=== PATIENT | female | born 1940 | race Caucasian/White ===

== ENCOUNTER → 2016-07-31 | Outpatient (REF) | payer MEDICARE, MEDICAID ==
[~2016-07-31] MED LIST: /MOXI40TA PO; AUGM875T27 PO; CRESTOR PO; LASI40TA PO; LISINOPRIL/HCTZ PO; METO50TA2 PO; Prednisone PO; TESS100C PO; ZOLO50TA PO
== END ==
LOC: M LAB REF 12:51
PROVIDERS: ATTEND Physician Assistant Medical
DX: N39.0 Urinary tract infection, site not specified (principal)

== ENCOUNTER → 2016-08-25 | Outpatient (CLI) | payer MEDICARE, MEDICAID ==
[2016-08-25 10:26] LABS: BASO % 0.4 % (0.0-1.0); EOS # 0.2 K/mm3 (0.0-0.50); EOS % 2.8 % (0.0-3.0); LYMPH # 1.5 K/mm3 (1.5-4.5); MEAN CORPUSCULAR HEMOGLOBIN 30.2 pg (27.0-33.0); MEAN CORPUSCULAR HGB CONC 33.2 g/dl (32.0-36.5); MONO # 0.5 K/mm3 (0.0-0.8); MONO % 7.7 % (0.0-5.0); NEUTROPHILS # 3.6 K/mm3 (1.8-7.7); NEUTROPHILS % 62.9 % (36.0-66.0); RED CELL DISTRIBUTION WIDTH 13.3 % (11.5-14.5); WHITE BLOOD COUNT 5.8 K/mm3 (4.0-10.0)
[2016-08-25 10:44] LABS: ALBUMIN/GLOBULIN RATIO 1.29 (1.00-1.93); ALKALINE PHOSPHATASE 70 U/L (45-117); ALT/SGPT 34 U/L (12-78); ANION GAP 8 MEQ/L (8-16); AST/SGOT 20 U/L (15-37); BILIRUBIN,TOTAL 0.5 MG/DL (0.2-1.0); BLOOD UREA NITROGEN 13 MG/DL (7-18); CARBON DIOXIDE LEVEL 29 MEQ/L (21-32); CHLORIDE LEVEL 108 MEQ/L (98-107); CHOLESTEROL LEVEL 157 MG/DL (<200); CREATININE FOR GFR 0.68 MG/DL (0.55-1.02); GLOMERULAR FILTRATION RATE > 60.0 (>39); GLUCOSE, FASTING 108 MG/DL (83-110); GLUCOSE,RANDOM 108 MG/DL (LESS THAN 200); POTASSIUM SERUM 4.3 MEQ/L (3.5-5.1); SODIUM LEVEL 145 MEQ/L (136-145); TOTAL PROTEIN 7.1 GM/DL (6.4-8.2); TRIGLYCERIDES LEVEL 91 MG/DL (<150)
== END ==
LOC: M LAB 09:47
PROVIDERS: ATTEND Physician Assistant Medical
DX: E11.9 Type 2 diabetes mellitus without complications (principal)

== ENCOUNTER → 2016-11-25 | Outpatient (CLI) | payer MEDICARE, MEDICAID ==
[2016-11-25 08:43] LABS: BASO % 0.5 % (0.0-1.0); EOS # 0.1 K/mm3 (0.0-0.50); EOS % 2.2 % (0.0-3.0); LYMPH # 1.7 K/mm3 (1.5-4.5); LYMPH % 28.3 % (24.0-44.0); MEAN CORPUSCULAR HEMOGLOBIN 30.5 pg (27.0-33.0); MEAN CORPUSCULAR VOLUME 92.3 fl (80.0-96.0); MONO # 0.4 K/mm3 (0.0-0.8); MONO % 6.9 % (0.0-5.0); NEUTROPHILS # 3.5 K/mm3 (1.8-7.7); NEUTROPHILS % 60.5 % (36.0-66.0); RED CELL DISTRIBUTION WIDTH 13.7 % (11.5-14.5); WHITE BLOOD COUNT 5.8 K/mm3 (4.0-10.0)
[2016-11-25 09:15] LABS: ALBUMIN 3.9 GM/DL (3.2-5.2); ALBUMIN/GLOBULIN RATIO 1.26 (1.00-1.93); ALKALINE PHOSPHATASE 68 U/L (45-117); ALT/SGPT 44 U/L (12-78); ANION GAP 6 MEQ/L (8-16); AST/SGOT 23 U/L (15-37); BILIRUBIN,TOTAL 0.4 MG/DL (0.2-1.0); BLOOD UREA NITROGEN 12 MG/DL (7-18); CALCIUM LEVEL 8.8 MG/DL (8.8-10.2); CARBON DIOXIDE LEVEL 30 MEQ/L (21-32); CHLORIDE LEVEL 107 MEQ/L (98-107); CHOLESTEROL LEVEL 204 MG/DL (<200); CREATININE FOR GFR 0.72 MG/DL (0.55-1.02); GLOMERULAR FILTRATION RATE > 60.0 (>39); GLUCOSE, FASTING 117 MG/DL (83-110); POTASSIUM SERUM 4.4 MEQ/L (3.5-5.1); SODIUM LEVEL 143 MEQ/L (136-145); TRIGLYCERIDES LEVEL 127 MG/DL (<150)
== END ==
LOC: M LAB 07:55
PROVIDERS: ATTEND Physician Assistant Medical
DX: E11.9 Type 2 diabetes mellitus without complications (principal)

== ENCOUNTER 2017-03-20 12:39 | Emergency (ER) | payer MEDICARE, MEDICAID ==
[~2017-03-20] VITALS: Ht 157.5 cm; Wt 84.1 kg
[2017-03-20] MEDS ORDERED: MECLIZINE 25 MG TABLET PO ONE (13:45)
[2017-03-20] MEDS ORDERED: FUROSEMIDE 40 MG TAB PO ONE (13:45)
[2017-03-20] MEDS ORDERED: METOPROLOL TART 50 MG TAB PO ONE (13:45)
[2017-03-20 14:25] VITALS: BP 171/71
[2017-03-20 14:32] LABS: BASO % 0.3 % (0.0-1.0); EOS # 0.1 K/mm3 (0.0-0.50); EOS % 1.8 % (0.0-3.0); LARGE UNSTAINED CELL # 0.1 K/mm3 (0.0-0.4); LARGE UNSTAINED CELL % 1.7 % (0.0-4.0); LYMPH # 1.6 K/mm3 (1.5-4.5); LYMPH % 23.4 % (24.0-44.0); MEAN CORPUSCULAR HEMOGLOBIN 30.6 pg (27.0-33.0); MEAN CORPUSCULAR HGB CONC 33.1 g/dl (32.0-36.5); MEAN CORPUSCULAR VOLUME 92.2 fl (80.0-96.0); MONO # 0.5 K/mm3 (0.0-0.8); MONO % 7.1 % (0.0-5.0); NEUTROPHILS # 4.3 K/mm3 (1.8-7.7); NEUTROPHILS % 65.6 % (36.0-66.0); PLATELET COUNT, AUTOMATED 195 k/mm3 (150-450); RED CELL DISTRIBUTION WIDTH 13.7 % (11.5-14.5); WHITE BLOOD COUNT 6.5 K/mm3 (4.0-10.0)
[2017-03-20 14:35] LABS: INR 0.94
[2017-03-20 14:38] LABS: ANION GAP 6 MEQ/L (8-16); BLOOD UREA NITROGEN 14 MG/DL (7-18); CALCIUM LEVEL 9.2 MG/DL (8.8-10.2); CARBON DIOXIDE LEVEL 31 MEQ/L (21-32); CHLORIDE LEVEL 106 MEQ/L (98-107); CREATININE FOR GFR 0.67 MG/DL (0.55-1.02); GLOMERULAR FILTRATION RATE > 60.0 (>39); GLUCOSE, FASTING 115 MG/DL (83-110); POTASSIUM SERUM 3.9 MEQ/L (3.5-5.1); SODIUM LEVEL 143 MEQ/L (136-145)
--- NOTE | 2017-03-20 14:43 | REP ---
CHEST X-RAY: Two views. HISTORY: Near-syncope. Comparison chest x-ray October 19, 2012. FINDINGS: EKG monitoring electrodes overlie the chest. Heart size is borderline unchanged. The aorta is calcific and mildly tortuous as before. Pulmonary vasculature is not increased. Pleural angles are sharp. IMPRESSION: Mildly prominent heart. Otherwise no acute disease. No change from comparison study 2012. Signed by Arnaldo Reyes MD 03/20/2017 03:05 P
--- NOTE | 2017-03-20 14:52 | REP ---
Clinical: Trauma . Findings: Age-related atrophy and microvascular ischemic changes are appreciated. The ventricles and sulci are symmetric. Parsons-white differentiation is maintained. There is no evidence for acute intracranial hemorrhage, mass/mass effect, pathology or infarction. No extra-axial fluid collection. Calvarium is intact. Paranasal sinuses and mastoid air cells are clear. Impression: Age related atrophy and microvascular ischemic changes. No acute intracranial hemorrhage, infarction, or mass/mass effect. Signed by José Luis oJshua MD 03/20/2017 02:42 P
--- NOTE | 2017-03-20 14:53 | REP ---
CT study of the cervical spine without contrast: History: Trauma. Technique: Helical scanning is acquired and overlapping 2 mm high resolution axial images were generated and reviewed at bone and soft tissue window settings. Coronal and sagittal multiplanar re-formations images are generated. CT findings: There is no evidence of cervical spine element fracture. No skull base fracture is seen. Cervical vertebral body heights are preserved. Alignment is normal. Facet joints are normally aligned bilaterally at each cervical level on multiplanar re-formations images. There is no evidence of intraspinal or paraspinal hematoma. No extra vertebral abnormality is seen. There are degenerative spondylosis changes in the cervical spine most pronounced at the C 04/05 and C5-6. 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 Impression: Degenerative spondylosis changes, otherwise negative CT study of the cervical spine without contrast. No fracture seen. Signed by Arnaldo Reyes MD 03/20/2017 02:44 P
[2017-03-20 20:28] VITALS: BP 114/69
[2017-03-20] MEDS ORDERED: MECL-68 PO (20:41)
--- NOTE | 2017-03-21 11:08 | REP ---
Clinical: Trauma. Headache. Altered mental status. Technique: Standard noncontrast MRI brain sequencing. Findings: Mild age-related atrophy with periventricular leukomalacia and chronic microvascular ischemic changes appreciated. Parsons-white differentiation is maintained. DWI is without evidence for acute infarction. No acute intracranial hemorrhage or mass/mass effect appreciated. The brain and midline structures appear intact and symmetric. No extra-axial collection. Orbits are symmetric and normal. Sinuses and paranasal sinuses are within normal limits. Impression: Age-related atrophy and microvascular ischemic changes. No evidence for acute intracranial process. Signed by José Luis Joshua MD 03/21/2017 10:59 A
--- NOTE | 2017-03-21 11:13 | REP ---
Clinical: Recent trauma with altered mental status and dizziness. Technique: Noncontrast 3-D [id number] source images with multiplanar multi rotational MIP sequencing. Findings: Mild atherosclerotic changes to the internal carotid arteries suggested. Vascularity to the bilateral hemispheres appears symmetric. The bilateral posterior communicating arteries are not identifiable. No obvious arteriovenous malformation or aneurysm is appreciated. No obvious abnormality. Impression: Vascularity the bilateral hemispheres appears symmetric and normal. No evidence for aneurysm or arteriovenous malformation. Signed by José Luis Joshua MD 03/21/2017 11:03 A
--- NOTE | 2017-03-21 17:16 | ECGEPIP ---
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
== END 2017-03-20 20:42 | disposition home or self-care (01) ==
LOC: M ED 12:39
DX: H81.49 Vertigo of central origin, unspecified ear (principal); I10 Essential (primary) hypertension; E11.9 Type 2 diabetes mellitus without complications; J45.909 Unspecified asthma, uncomplicated; D64.9 Anemia, unspecified; E78.5 Hyperlipidemia, unspecified; F41.9 Anxiety disorder, unspecified; K21.9 Gastro-esophageal reflux disease without esophagitis; Z79.899 Other long term (current) drug therapy

== ENCOUNTER → 2017-03-30 | Outpatient (CLI) | payer MEDICARE, MEDICAID ==
[~2017-03-30] MED LIST changes: +MECL-68 PO
[2017-03-30 08:46] LABS: BASO % 0.3 % (0.0-1.0); EOS # 0.2 K/mm3 (0.0-0.50); EOS % 1.9 % (0.0-3.0); LYMPH % 26.2 % (24.0-44.0); MEAN CORPUSCULAR HEMOGLOBIN 30.1 pg (27.0-33.0); MEAN CORPUSCULAR HGB CONC 33.3 g/dl (32.0-36.5); MEAN CORPUSCULAR VOLUME 90.6 fl (80.0-96.0); MONO # 0.4 K/mm3 (0.0-0.8); MONO % 5.6 % (0.0-5.0); NEUTROPHILS % 64.3 % (36.0-66.0); RED CELL DISTRIBUTION WIDTH 13.2 % (11.5-14.5); WHITE BLOOD COUNT 7.7 K/mm3 (4.0-10.0)
[2017-03-30 08:57] LABS: ALBUMIN 3.8 GM/DL (3.2-5.2); ALBUMIN/GLOBULIN RATIO 1.15 (1.00-1.93); BILIRUBIN,TOTAL 0.4 MG/DL (0.2-1.0); CALCIUM LEVEL 8.3 MG/DL (8.8-10.2); CREATININE FOR GFR 1.09 MG/DL (0.55-1.02); GLOMERULAR FILTRATION RATE 52.1 (>39); POTASSIUM SERUM 4.6 MEQ/L (3.5-5.1); TOTAL PROTEIN 7.1 GM/DL (6.4-8.2)
== END ==
LOC: M LAB 07:57
PROVIDERS: ATTEND Physician Assistant Medical
DX: E11.9 Type 2 diabetes mellitus without complications (principal)

== ENCOUNTER → 2017-08-17 | Outpatient (REF) | payer MEDICARE, MEDICAID ==
[2017-08-17 14:42] LABS: MALB URINE SIEMENS 28.4 MG/L
[2017-08-17 15:06] LABS: ESTIMATED AVERAGE GLUCOSE 148 MG/DL (60-110); HEMOGLOBIN A1c 6.8 %
[2017-08-17 15:10] LABS: TOTAL 25(OH) VITAMIN D 37.5 NG/ML (30.0-100.0)
[2017-08-17 15:25] LABS: ALBUMIN/GLOBULIN RATIO 1.21 (1.00-1.93); ALKALINE PHOSPHATASE 67 U/L (45-117); ALT/SGPT 21 U/L (12-78); ANION GAP 10 MEQ/L (8-16); AST/SGOT 19 U/L (7-37); BILIRUBIN,TOTAL 0.5 MG/DL (0.2-1.0); BLOOD UREA NITROGEN 21 MG/DL (7-18); CALCIUM LEVEL 9.3 MG/DL (8.8-10.2); CARBON DIOXIDE LEVEL 24 MEQ/L (21-32); CHLORIDE LEVEL 111 MEQ/L (98-107); CREATININE FOR GFR 0.72 MG/DL (0.55-1.30); GLOMERULAR FILTRATION RATE > 60.0 (>39); GLUCOSE, FASTING 121 MG/DL (70-100); POTASSIUM SERUM 4.5 MEQ/L (3.5-5.1); SODIUM LEVEL 145 MEQ/L (136-145); TOTAL PROTEIN 7.3 GM/DL (6.4-8.2)
== END ==
LOC: M LAB REF 12:49
DX: E11.9 Type 2 diabetes mellitus without complications (principal)
CPT/HCPCS: 80053

== ENCOUNTER 2017-09-05 07:27 | Emergency (ER) | payer MEDICARE, MEDICAID ==
[2017-09-05] MEDS: MECLIZINE 25 MG TABLET PO (08:00)
[2017-09-05] MEDS: ONDANSETRON 4 MG ORAL DISINTEGRATING TAB (S0181) PO (08:00)
[2017-09-05 08:35] LABS: BASO % 0.3 % (0.0-1.0); EOS # 0.1 10^3/uL (0.0-0.50); EOS % 1.5 % (0.0-3.0); HEMATOCRIT 39.8 % (36.0-47.0); HEMOGLOBIN 13.1 g/dl (12.0-16.0); IMMATURE GRANULOCYTE % 0.4 % (0-3.0); LYMPH # 1.4 10^3/uL (1.5-4.5); LYMPH % 21.5 % (24.0-44.0); MEAN CORPUSCULAR HGB CONC 32.9 g/dl (32.0-36.5); MEAN CORPUSCULAR VOLUME 91.3 fl (80.0-96.0); MONO # 0.5 10^3/uL (0.0-0.8); MONO % 7.9 % (0.0-5.0); NEUTROPHILS # 4.6 10^3/uL (1.8-7.7); NEUTROPHILS % 68.4 % (36.0-66.0); PLATELET COUNT, AUTOMATED 220 10^3/uL (150-450); RED BLOOD COUNT 4.36 10^6/uL (4.00-5.40); RED CELL DISTRIBUTION WIDTH 13.7 % (11.5-14.5); WHITE BLOOD COUNT 6.7 10^3/uL (4.0-10.0)
[2017-09-05 08:47] LABS: ANION GAP 6 MEQ/L (8-16); BLOOD UREA NITROGEN 14 MG/DL (7-18); CALCIUM LEVEL 8.2 MG/DL (8.8-10.2); CARBON DIOXIDE LEVEL 28 MEQ/L (21-32); CHLORIDE LEVEL 110 MEQ/L (98-107); GLOMERULAR FILTRATION RATE > 60.0 (>39); GLUCOSE, FASTING 135 MG/DL (70-100); MAGNESIUM LEVEL 2.2 MG/DL (1.8-2.4); POTASSIUM SERUM 3.6 MEQ/L (3.5-5.1); SODIUM LEVEL 144 MEQ/L (136-145)
== END 2017-09-05 13:45 | disposition home or self-care (01) ==
LOC: M ED 07:27
DX: H81.399 Other peripheral vertigo, unspecified ear (principal); J44.9 Chronic obstructive pulmonary disease, unspecified; I10 Essential (primary) hypertension; F33.9 Major depressive disorder, recurrent, unspecified; Z79.84 Long term (current) use of oral hypoglycemic drugs; Z79.899 Other long term (current) drug therapy
CPT/HCPCS: 70551

== ENCOUNTER → 2017-10-21 | Outpatient (REF) | payer MEDICARE, MEDICAID ==
[2017-10-21 13:39] LABS: APPEARANCE, URINE HAZY (CLEAR); BACTERIA, URINE AUTO NEGATIVE (NEGATIVE); BILIRUBIN, URINE AUTO NEGATIVE (NEGATIVE); BLOOD, URINE BLOOD NEGATIVE (NEGATIVE); COLOR, URINE YELLOW (YELLOW); GLUCOSE, URINE (UA) AUTO NEGATIVE (NEGATIVE); KETONE, URINE AUTO TRACE mg/dL (NEGATIVE); LEUKOCYTE ESTERASE, URINE AUTO 3+ (NEGATIVE); MUCUS, URINE SMALL (NEGATIVE); NITRITE, URINE AUTO NEGATIVE (NEGATIVE); PROTEIN, URINE AUTO NEGATIVE (NEGATIVE); RBC, URINE AUTO 18 /HPF (0-3); SPECIFIC GRAVITY URINE AUTO 1.027 (1.002-1.035); SQUAMOUS EPITHELIAL CELL UR AU 1 /HPF (0-6); UROBILINOGEN, URINE AUTO 0.2 mg/dL (0.0-2.0); WBC, URINE AUTO 27 /HPF (0-3)
== END ==
LOC: M LAB REF 13:08
DX: N39.0 Urinary tract infection, site not specified (principal)
CPT/HCPCS: 81001

== ENCOUNTER 2017-12-31 06:06 | Emergency (ER) | payer MEDICARE, MEDICAID ==
[2017-12-31] MEDS: ACETAMINOPHEN 325 MG TAB PO (06:41)
[2017-12-31] MEDS: PHENAZOPYRIDINE 100 MG TAB PO (06:41)
[2017-12-31 06:45] LABS: KETONE, URINE AUTO RFX TRACE mg/dL (NEGATIVE); MUCUS, URINE RFX SMALL (NEGATIVE); NITRITE, URINE AUTO RFX NEGATIVE (NEGATIVE); RBC, URINE AUTO RFX TNTC /HPF (0-3); SPECIFIC GRAVITY UR AUTO RFX 1.028 (1.002-1.035); SQUAM EPITHELIAL CELL UR AURFX 2 /HPF (0-6)
[2017-12-31 06:46] LABS: LEUKOCYTE ESTERASE UR AUTO RFX 2+ (NEGATIVE); WBC, URINE AUTO RFX 15 /HPF (0-3)
[2017-12-31] MEDS: CIPROFLOXACIN 500 MG TAB PO (07:00)
== END 2017-12-31 07:02 | disposition home or self-care (01) ==
LOC: M ED 06:06
DX: N30.01 Acute cystitis with hematuria (principal); E11.9 Type 2 diabetes mellitus without complications; I10 Essential (primary) hypertension; J44.9 Chronic obstructive pulmonary disease, unspecified; K21.9 Gastro-esophageal reflux disease without esophagitis; F32.9 Major depressive disorder, single episode, unspecified; Z79.84 Long term (current) use of oral hypoglycemic drugs; Z79.899 Other long term (current) drug therapy
CPT/HCPCS: 81001

== ENCOUNTER 2018-01-13 05:36 | Emergency (ER) | payer MEDICARE, MEDICAID ==
[2018-01-13 06:37] LABS: KETONE, URINE AUTO RFX NEGATIVE (NEGATIVE); MUCUS, URINE RFX SMALL (NEGATIVE); NITRITE, URINE AUTO RFX NEGATIVE (NEGATIVE); RBC, URINE AUTO RFX TNTC /HPF (0-3); SPECIFIC GRAVITY UR AUTO RFX 1.018 (1.002-1.035); SQUAM EPITHELIAL CELL UR AURFX 1 /HPF (0-6)
[2018-01-13 06:38] LABS: LEUKOCYTE ESTERASE UR AUTO RFX 2+ (NEGATIVE); WBC, URINE AUTO RFX 14 /HPF (0-3)
[2018-01-13 06:41] LABS: BASO % 0.4 % (0.0-1.0); EOS # 0.1 10^3/uL (0.0-0.50); EOS % 2.4 % (0.0-3.0); HEMOGLOBIN 13.1 g/dl (12.0-15.5); IMMATURE GRANULOCYTE % 0.2 % (0-3.0); LYMPH # 1.6 10^3/uL (1.5-4.5); LYMPH % 29.9 % (24.0-44.0); MEAN CORPUSCULAR HGB CONC 32.8 g/dl (32.0-36.5); MEAN CORPUSCULAR VOLUME 91.5 fl (80.0-96.0); MONO # 0.5 10^3/uL (0.0-0.8); MONO % 9.6 % (0.0-5.0); NEUTROPHILS # 3.1 10^3/uL (1.8-7.7); NEUTROPHILS % 57.5 % (36.0-66.0); PLATELET COUNT, AUTOMATED 185 10^3/uL (150-450); RED BLOOD COUNT 4.37 10^6/uL (4.00-5.40); RED CELL DISTRIBUTION WIDTH 13.5 % (11.5-14.5); WHITE BLOOD COUNT 5.4 10^3/uL (4.0-10.0)
[2018-01-13 06:54] LABS: INR 0.98; PROTHROMBIN TIME 13.1 SECONDS (12.1-14.4)
[2018-01-13 07:10] LABS: ALBUMIN 3.9 GM/DL (3.2-5.2); ALBUMIN/GLOBULIN RATIO 1.22 (1.00-1.93); ALKALINE PHOSPHATASE 67 U/L (45-117); ALT/SGPT 23 U/L (12-78); ANION GAP 3 MEQ/L (8-16); AST/SGOT 16 U/L (7-37); BILIRUBIN,TOTAL 0.5 MG/DL (0.2-1.0); BLOOD UREA NITROGEN 13 MG/DL (7-18); C REACTIVE PROTEIN QUANTITATIV < 0.30 MG/DL (0.00-0.30); CALCIUM LEVEL 8.6 MG/DL (8.8-10.2); CARBON DIOXIDE LEVEL 30 MEQ/L (21-32); CHLORIDE LEVEL 111 MEQ/L (98-107); CREATININE FOR GFR 0.73 MG/DL (0.55-1.30); GLOMERULAR FILTRATION RATE > 60.0 (>39); GLUCOSE, FASTING 123 MG/DL (70-100); POTASSIUM SERUM 4.2 MEQ/L (3.5-5.1); SODIUM LEVEL 144 MEQ/L (136-145); TOTAL PROTEIN 7.1 GM/DL (6.4-8.2)
== END 2018-01-13 07:47 | disposition home or self-care (01) ==
LOC: M ED 05:36
DX: R31.9 Hematuria, unspecified (principal); Z87.440 Personal history of urinary (tract) infections; E11.9 Type 2 diabetes mellitus without complications; J44.9 Chronic obstructive pulmonary disease, unspecified; I10 Essential (primary) hypertension; K21.9 Gastro-esophageal reflux disease without esophagitis; F32.9 Major depressive disorder, single episode, unspecified; Z79.899 Other long term (current) drug therapy; Z79.84 Long term (current) use of oral hypoglycemic drugs
CPT/HCPCS: 74176

== ENCOUNTER → 2018-02-18 | Outpatient (REF) | payer MEDICARE, MEDICAID ==
[2018-02-18 13:49] LABS: ALBUMIN 3.7 GM/DL (3.2-5.2); ALBUMIN/GLOBULIN RATIO 1.16 (1.00-1.93); ALKALINE PHOSPHATASE 63 U/L (45-117); ALT/SGPT 28 U/L (12-78); ANION GAP 9 MEQ/L (8-16); AST/SGOT 18 U/L (7-37); BILIRUBIN,TOTAL 0.6 MG/DL (0.2-1.0); BLOOD UREA NITROGEN 10 MG/DL (7-18); CALCIUM LEVEL 8.5 MG/DL (8.8-10.2); CARBON DIOXIDE LEVEL 27 MEQ/L (21-32); CHLORIDE LEVEL 110 MEQ/L (98-107); CHOLESTEROL LEVEL 149 MG/DL (<200); CREATININE FOR GFR 0.71 MG/DL (0.55-1.30); GLOMERULAR FILTRATION RATE > 60.0 (>39); GLUCOSE, FASTING 102 MG/DL (70-100); HDL CHOLESTEROL 56 MG/DL (>40); LDL CHOLESTEROL 69.4 MG/DL (<100); NON-HDL-C 93 MG/DL; SODIUM LEVEL 146 MEQ/L (136-145); TOTAL PROTEIN 6.9 GM/DL (6.4-8.2); TRIGLYCERIDES LEVEL 118 MG/DL (<150)
[2018-02-18 14:23] LABS: ESTIMATED AVERAGE GLUCOSE 128 MG/DL (60-110); HEMOGLOBIN A1c 6.1 %
== END ==
LOC: M LAB REF 12:16
DX: E78.5 Hyperlipidemia, unspecified (principal); E11.9 Type 2 diabetes mellitus without complications
CPT/HCPCS: 80053

== ENCOUNTER → 2018-08-04 | Outpatient (REF) | payer MEDICARE, MEDICAID ==
[~2018-08-04] MED LIST changes: +CIPR-249 PO; +ESOM1CAP5; +LISINOP/HCTZ; +MACR100C43 PO; +METF500T13; +METO1TAB7; +PYRI1TAB5 PO; +ROSU20TA4; +VENTAER; +VITA50005; +ZOFR4TAB14 PO
[2018-08-04 12:36] LABS: AMORPHOUS SEDIMENT LARGE (NEGATIVE); APPEARANCE, URINE CLOUDY (CLEAR); BACTERIA, URINE AUTO NEGATIVE (NEGATIVE); BILIRUBIN, URINE AUTO NEGATIVE (NEGATIVE); BLOOD, URINE BLOOD NEGATIVE (NEGATIVE); COLOR, URINE YELLOW (YELLOW); GLUCOSE, URINE (UA) AUTO NEGATIVE (NEGATIVE); KETONE, URINE AUTO NEGATIVE (NEGATIVE); LEUKOCYTE ESTERASE, URINE AUTO TRACE (NEGATIVE); NITRITE, URINE AUTO NEGATIVE (NEGATIVE); PROTEIN, URINE AUTO NEGATIVE (NEGATIVE); RBC, URINE AUTO 2 /HPF (0-3); SPECIFIC GRAVITY URINE AUTO 1.014 (1.002-1.035); SQUAMOUS EPITHELIAL CELL UR AU 0 /HPF (0-6); UROBILINOGEN, URINE AUTO 0.2 mg/dL (0.0-2.0); WBC, URINE AUTO 4 /HPF (0-3)
== END ==
LOC: M LAB REF 12:08
PROVIDERS: ATTEND Physician Assistant
DX: N39.0 Urinary tract infection, site not specified (principal)

== ENCOUNTER 2018-08-12 07:12 | Emergency (ER) | payer MEDICARE, MEDICAID ==
[~2018-08-12] VITALS: Ht 157.5 cm; Wt 84.1 kg
--- NOTE | 2018-08-12 09:25 | REP ---
CT abdomen and pelvis without IV or oral contrast: History: Right-sided flank pain and abdomen pain. Comparison study: January 13, 2018. 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 Bowel gas pattern is otherwise unremarkable. The lung bases show some minimal fibrotic changes but are otherwise clear. There is a small sliding-type hiatal hernia. No focal hepatic or splenic lesion is seen. Normal adrenals are seen. No abnormality is noted in the gallbladder or pancreas. There is no evidence of intrarenal calculus or hydronephrosis. No retroperitoneal mass or adenopathy is seen. Normal caliber aorta. Normal appendix is seen in the right lower quadrant. There is extensive pancolonic diverticulosis without CT evidence of diverticulitis. This is most pronounced in the sigmoid colon as before. Uterus is tipped to the left but appears intact. No ovarian mass or cyst is seen. 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 This is unchanged. No other abdominal wall defect is seen. There is no evidence of free air or abnormal fluid collection. Impression: Small sliding hiatal hernia. Left lower quadrant spigelian hernia transmits abdominal fat unchanged. Pancolonic diverticulosis without CT evidence of diverticulitis. Otherwise negative. Electronically Signed by Arnaldo Reyes MD 08/12/2018 01:50 P
[2018-08-12 09:29] LABS: BASO % 0.4 % (0.0-1.0); EOS # 0.1 10^3/uL (0.0-0.50); EOS % 0.9 % (0.0-3.0); HEMATOCRIT 42.7 % (36.0-47.0); HEMOGLOBIN 14.2 g/dl (12.0-15.5); LYMPH # 1.6 10^3/uL (1.5-4.5); LYMPH % 20.1 % (24.0-44.0); MEAN CORPUSCULAR HEMOGLOBIN 30.7 pg (27.0-33.0); MEAN CORPUSCULAR HGB CONC 33.3 g/dl (32.0-36.5); MEAN CORPUSCULAR VOLUME 92.2 fl (80.0-96.0); MONO # 0.7 10^3/uL (0.0-0.8); MONO % 8.3 % (0.0-5.0); NEUTROPHILS # 5.6 10^3/uL (1.8-7.7); NEUTROPHILS % 69.9 % (36.0-66.0); PLATELET COUNT, AUTOMATED 200 10^3/uL (150-450); RED BLOOD COUNT 4.63 10^6/uL (4.00-5.40)
[2018-08-12 10:06] LABS: ALBUMIN 3.9 GM/DL (3.2-5.2); ALT/SGPT 25 U/L (12-78); BILIRUBIN,DIRECT < 0.1 MG/DL (0.0-0.2); BILIRUBIN,TOTAL 0.6 MG/DL (0.2-1.0); BLOOD UREA NITROGEN 18 MG/DL (7-18); CALCIUM LEVEL 8.7 MG/DL (8.8-10.2); CARBON DIOXIDE LEVEL 27 MEQ/L (21-32); CHLORIDE LEVEL 107 MEQ/L (98-107); CREATININE FOR GFR 0.74 MG/DL (0.55-1.30); GLOMERULAR FILTRATION RATE > 60.0 (>39); GLUCOSE, FASTING 103 MG/DL (70-100); POTASSIUM SERUM 4.4 MEQ/L (3.5-5.1); SODIUM LEVEL 141 MEQ/L (136-145); TOTAL PROTEIN 7.5 GM/DL (6.4-8.2)
[2018-08-12 10:42] VITALS: BP 137/84
== END 2018-08-12 10:48 | disposition home or self-care (01) ==
LOC: M ED 07:12
DX: K44.9 Diaphragmatic hernia without obstruction or gangrene (principal); K43.9 Ventral hernia without obstruction or gangrene; I10 Essential (primary) hypertension; E11.9 Type 2 diabetes mellitus without complications; E78.00 Pure hypercholesterolemia, unspecified; K21.9 Gastro-esophageal reflux disease without esophagitis; F33.9 Major depressive disorder, recurrent, unspecified; Z79.899 Other long term (current) drug therapy; Z79.84 Long term (current) use of oral hypoglycemic drugs

== ENCOUNTER → 2018-10-03 | Outpatient (REF) | payer MEDICARE, MEDICAID ==
[2018-10-03 18:37] LABS: APPEARANCE, URINE CLEAR (CLEAR); BACTERIA, URINE AUTO NEGATIVE (NEGATIVE); BILIRUBIN, URINE AUTO NEGATIVE (NEGATIVE); BLOOD, URINE BLOOD 3+ (NEGATIVE); COLOR, URINE YELLOW (YELLOW); GLUCOSE, URINE (UA) AUTO NEGATIVE (NEGATIVE); KETONE, URINE AUTO NEGATIVE (NEGATIVE); LEUKOCYTE ESTERASE, URINE AUTO 1+ (NEGATIVE); MUCUS, URINE SMALL (NEGATIVE); NITRITE, URINE AUTO NEGATIVE (NEGATIVE); PROTEIN, URINE AUTO NEGATIVE (NEGATIVE); RBC, URINE AUTO 112 /HPF (0-3); SPECIFIC GRAVITY URINE AUTO 1.023 (1.002-1.035); SQUAMOUS EPITHELIAL CELL UR AU 1 /HPF (0-6); WBC, URINE AUTO 12 /HPF (0-3)
== END ==
LOC: M LAB REF 12:29
PROVIDERS: ATTEND Physician Assistant Medical
DX: R30.0 Dysuria (principal)

== ENCOUNTER → 2018-10-25 | Outpatient (REF) | payer MEDICARE, MEDICAID ==
[~2018-10-25] MED LIST changes: -/MOXI40TA PO; +AVEL1TAB2 PO
[2018-10-25 17:33] LABS: APPEARANCE, URINE CLEAR (CLEAR); BACTERIA, URINE AUTO NEGATIVE (NEGATIVE); BILIRUBIN, URINE AUTO NEGATIVE (NEGATIVE); BLOOD, URINE BLOOD NEGATIVE (NEGATIVE); COLOR, URINE STRAW (YELLOW); GLUCOSE, URINE (UA) AUTO NEGATIVE (NEGATIVE); KETONE, URINE AUTO NEGATIVE (NEGATIVE); LEUKOCYTE ESTERASE, URINE AUTO NEGATIVE (NEGATIVE); NITRITE, URINE AUTO NEGATIVE (NEGATIVE); PROTEIN, URINE AUTO NEGATIVE (NEGATIVE); RBC, URINE AUTO 0 /HPF (0-3); SPECIFIC GRAVITY URINE AUTO 1.006 (1.002-1.035); SQUAMOUS EPITHELIAL CELL UR AU 0 /HPF (0-6); UROBILINOGEN, URINE AUTO 0.2 mg/dL (0.0-2.0); WBC, URINE AUTO 1 /HPF (0-3)
== END ==
LOC: M LAB REF 16:51
PROVIDERS: ATTEND Physician Assistant
DX: N39.0 Urinary tract infection, site not specified (principal)

== ENCOUNTER → 2018-12-27 | Outpatient (REF) | payer MEDICARE, MEDICAID ==
[2018-12-27 17:41] LABS: APPEARANCE, URINE CLEAR (CLEAR); BACTERIA, URINE AUTO NEGATIVE (NEGATIVE); BILIRUBIN, URINE AUTO NEGATIVE (NEGATIVE); BLOOD, URINE BLOOD NEGATIVE (NEGATIVE); COLOR, URINE STRAW (YELLOW); GLUCOSE, URINE (UA) AUTO NEGATIVE (NEGATIVE); KETONE, URINE AUTO NEGATIVE (NEGATIVE); LEUKOCYTE ESTERASE, URINE AUTO 2+ (NEGATIVE); NITRITE, URINE AUTO NEGATIVE (NEGATIVE); PROTEIN, URINE AUTO NEGATIVE (NEGATIVE); RBC, URINE AUTO 1 /HPF (0-3); SPECIFIC GRAVITY URINE AUTO 1.008 (1.002-1.035); SQUAMOUS EPITHELIAL CELL UR AU 0 /HPF (0-6); UROBILINOGEN, URINE AUTO 0.2 mg/dL (0.0-2.0); WBC, URINE AUTO 14 /HPF (0-3)
== END ==
LOC: M LAB REF 16:11
PROVIDERS: ATTEND Physician Assistant Medical
DX: N39.0 Urinary tract infection, site not specified (principal)

== ENCOUNTER → 2018-12-31 | Outpatient (REF) | payer MEDICARE, MEDICAID ==
[2018-12-31 12:58] LABS: AMORPHOUS SEDIMENT SMALL (NEGATIVE); APPEARANCE, URINE HAZY (CLEAR); BACTERIA, URINE AUTO NEGATIVE (NEGATIVE); BILIRUBIN, URINE AUTO NEGATIVE (NEGATIVE); BLOOD, URINE BLOOD 1+ (NEGATIVE); COLOR, URINE YELLOW (YELLOW); GLUCOSE, URINE (UA) AUTO NEGATIVE (NEGATIVE); KETONE, URINE AUTO NEGATIVE (NEGATIVE); LEUKOCYTE ESTERASE, URINE AUTO 1+ (NEGATIVE); MUCUS, URINE SMALL (NEGATIVE); NITRITE, URINE AUTO NEGATIVE (NEGATIVE); PROTEIN, URINE AUTO NEGATIVE (NEGATIVE); RBC, URINE AUTO 19 /HPF (0-3); SPECIFIC GRAVITY URINE AUTO 1.018 (1.002-1.035); SQUAMOUS EPITHELIAL CELL UR AU 1 /HPF (0-6); UROBILINOGEN, URINE AUTO 0.2 mg/dL (0.0-2.0); WBC, URINE AUTO 6 /HPF (0-3)
[2018-12-31 13:32] LABS: BASO % 0.3 % (0.0-1.0); EOS # 0.1 10^3/uL (0.0-0.50); EOS % 1.6 % (0.0-3.0); HEMATOCRIT 41.3 % (36.0-47.0); HEMOGLOBIN 13.5 g/dl (12.0-15.5); LYMPH % 30.9 % (24.0-44.0); MEAN CORPUSCULAR HEMOGLOBIN 31.7 pg (27.0-33.0); MEAN CORPUSCULAR HGB CONC 32.7 g/dl (32.0-36.5); MEAN CORPUSCULAR VOLUME 96.9 fl (80.0-96.0); MONO # 0.6 10^3/uL (0.0-0.8); MONO % 9.6 % (0.0-5.0); NEUTROPHILS # 3.7 10^3/uL (1.8-7.7); NEUTROPHILS % 57.3 % (36.0-66.0); PLATELET COUNT, AUTOMATED 206 10^3/uL (150-450); RED BLOOD COUNT 4.26 10^6/uL (4.00-5.40); WHITE BLOOD COUNT 6.4 10^3/uL (4.0-10.0)
[2018-12-31 13:39] LABS: MAU/CREAT RATIO 46.6 MCG/MG (0.0-30.0)
[2018-12-31 13:43] LABS: ALT/SGPT 28 U/L (12-78); BILIRUBIN,TOTAL 0.5 MG/DL (0.2-1.0); BLOOD UREA NITROGEN 15 MG/DL (7-18); CALCIUM LEVEL 8.6 MG/DL (8.8-10.2); CARBON DIOXIDE LEVEL 29 MEQ/L (21-32); CHLORIDE LEVEL 107 MEQ/L (98-107); CHOLESTEROL LEVEL 154 MG/DL (<200); CHOLESTEROL RISK RATIO 2.333 (<5); CREATININE FOR GFR 0.82 MG/DL (0.55-1.30); FREE T4 0.89 NG/DL (0.76-1.46); GLOMERULAR FILTRATION RATE > 60.0 (>39); GLUCOSE, FASTING 112 MG/DL (70-100); HDL CHOLESTEROL 66 MG/DL (>40); LDL CHOLESTEROL 69 MG/DL (<100); NON-HDL-C 88 MG/DL; POTASSIUM SERUM 4.4 MEQ/L (3.5-5.1); SODIUM LEVEL 143 MEQ/L (136-145); TOTAL PROTEIN 7.4 GM/DL (6.4-8.2); TRIGLYCERIDES LEVEL 96 MG/DL (<150)
[2018-12-31 13:45] LABS: TOTAL 25(OH) VITAMIN D 30.4 NG/ML (30.0-100.0)
[2018-12-31 13:50] LABS: HEMOGLOBIN A1c 6.9 %
== END ==
LOC: M LAB REF 12:15
PROVIDERS: ATTEND Family Medicine
DX: E11.9 Type 2 diabetes mellitus without complications (principal); Z79.899 Other long term (current) drug therapy

== ENCOUNTER 2019-02-04 17:55 | Emergency (ER) | payer MEDICARE, MEDICAID ==
[~2019-02-04] VITALS: Ht 157.5 cm; Wt 84.1 kg
[~2019-02-04 17:55] MED LIST changes: -ROSU20TA4; +ROSU20TA5
[2019-02-04] MEDS ORDERED: FURO20TA2 (18:04)
[2019-02-04] MEDS ORDERED: LISI10TA15 (18:04)
[2019-02-04] MEDS ORDERED: LATA0.0015 (18:05)
[2019-02-04 19:35] LABS: APPEARANCE, URINE CLEAR (CLEAR); BACTERIA, URINE AUTO NEGATIVE (NEGATIVE); BILIRUBIN, URINE AUTO NEGATIVE (NEGATIVE); BLOOD, URINE BLOOD 1+ (NEGATIVE); COLOR, URINE YELLOW (YELLOW); GLUCOSE, URINE (UA) AUTO NEGATIVE (NEGATIVE); KETONE, URINE AUTO NEGATIVE (NEGATIVE); LEUKOCYTE ESTERASE, URINE AUTO 1+ (NEGATIVE); MUCUS, URINE SMALL (NEGATIVE); NITRITE, URINE AUTO NEGATIVE (NEGATIVE); PROTEIN, URINE AUTO NEGATIVE (NEGATIVE); RBC, URINE AUTO 8 /HPF (0-3); SPECIFIC GRAVITY URINE AUTO 1.019 (1.002-1.035); SQUAMOUS EPITHELIAL CELL UR AU 0 /HPF (0-6); WBC, URINE AUTO 24 /HPF (0-3)
--- NOTE | 2019-02-04 20:15 | REPVR ---
EXAM: US Duplex Right Lower Extremity Veins, Limited EXAM DATE/TIME: 02/04/2019 7:37 PM CLINICAL HISTORY: 78 years old, female; Pain; Leg, lower; Right; Additional info: Right calf pain eval dvt TECHNIQUE: Imaging protocol: Real-time Duplex ultrasound of the Right Lower Extremity with 2-D lopez scale, color Doppler flow and spectral waveform analysis with image documentation. Limited exam was focused on the right lower extremity veins. COMPARISON: No relevant prior studies available. FINDINGS: Right deep veins: Unremarkable. The common femoral, femoral, proximal profunda femoral and popliteal veins are patent without thrombus. Normal Doppler waveforms. Normal compressibility and/or augmentation response. Right superficial veins: Unremarkable. Saphenofemoral junction is patent without thrombus. Soft tissues: Unremarkable. IMPRESSION: No acute findings. No evidence of deep vein thrombosis. Electronically signed by: Alverto Hickey On 02/04/2019 20:14:48 PM
[2019-02-04] MEDS ORDERED: NITR100C2 PO (20:43)
[2019-02-04] MEDS ORDERED: MACR100C43 PO (20:43)
[2019-02-04 20:59] VITALS: BP 189/81
== END 2019-02-04 21:01 | disposition home or self-care (01) ==
LOC: M ED 17:55
DX: S86.111A Strain of other muscle(s) and tendon(s) of posterior muscle group at lower leg level, right leg, initial encounter (principal); X50.0XXA Overexertion from strenuous movement or load, initial encounter; Y92.89 Other specified places as the place of occurrence of the external cause; Y93.H9 Activity, other involving exterior property and land maintenance, building and construction; N30.01 Acute cystitis with hematuria; E11.9 Type 2 diabetes mellitus without complications; I10 Essential (primary) hypertension; E78.5 Hyperlipidemia, unspecified; Z79.899 Other long term (current) drug therapy; Z79.84 Long term (current) use of oral hypoglycemic drugs

== ENCOUNTER → 2019-03-19 | Outpatient (REF) | payer MEDICARE, MEDICAID ==
[~2019-03-19] MED LIST changes: +FURO20TA2; +LATA0.0015; +LISI10TA15; +NITR100C2 PO
== END ==
LOC: M LAB REF 09:16
PROVIDERS: ATTEND Physician Assistant Medical
DX: R30.0 Dysuria (principal)

== ENCOUNTER 2019-04-12 10:39 | Emergency (ER) | payer MEDICARE, MEDICAID ==
[~2019-04-12] VITALS: Ht 157.5 cm; Wt 84.1 kg
[~2019-04-12 10:39] MED LIST changes: -FURO20TA2; +FURO20TA2 PO; -LISI10TA15; +LISI10TA15 PO
--- NOTE | 2019-04-12 12:12 | REP ---
Right lower extremity deep vein duplex ultrasound for thrombus: The deep veins demonstrate normal compression, normal Doppler color flow and normal Doppler waveforms with respiration and augmentation from the popliteal vein to the common femoral vein. Impression: There is no right lower extremity deep vein thrombus. Electronically Signed by J Carlos Rivero MD 04/12/2019 12:03 P
[2019-04-12 12:57] VITALS: BP 175/76
== END 2019-04-12 13:00 | disposition home or self-care (01) ==
LOC: M ED 10:39
DX: M79.651 Pain in right thigh (principal); Z79.899 Other long term (current) drug therapy

== ENCOUNTER 2019-05-17 08:10 | Emergency (ER) | payer MEDICARE, MEDICAID ==
[~2019-05-17] VITALS: Ht 157.5 cm; Wt 83.2 kg
[2019-05-17 09:16] VITALS: BP 180/80
[2019-05-18] MEDS ORDERED: APAP325T4 PO (09:24)
== END 2019-05-17 09:34 | disposition home or self-care (01) ==
LOC: M ED 08:10
DX: R35.0 Frequency of micturition (principal); R10.2 Pelvic and perineal pain; E78.5 Hyperlipidemia, unspecified; I10 Essential (primary) hypertension; E11.9 Type 2 diabetes mellitus without complications; Z79.899 Other long term (current) drug therapy

== ENCOUNTER → 2019-06-21 | Outpatient (REF) | payer MEDICARE, MEDICAID ==
[~2019-06-21] MED LIST changes: +APAP325T4 PO
[2019-06-21 15:32] LABS: AMORPHOUS SEDIMENT SMALL (NEGATIVE); APPEARANCE, URINE CLEAR (CLEAR); BACTERIA, URINE AUTO NEGATIVE (NEGATIVE); BILIRUBIN, URINE AUTO NEGATIVE (NEGATIVE); BLOOD, URINE BLOOD 2+ (NEGATIVE); COLOR, URINE STRAW (YELLOW); GLUCOSE, URINE (UA) AUTO NEGATIVE (NEGATIVE); KETONE, URINE AUTO NEGATIVE (NEGATIVE); LEUKOCYTE ESTERASE, URINE AUTO 2+ (NEGATIVE); NITRITE, URINE AUTO NEGATIVE (NEGATIVE); PROTEIN, URINE AUTO NEGATIVE (NEGATIVE); RBC, URINE AUTO 11 /HPF (0-3); SPECIFIC GRAVITY URINE AUTO 1.009 (1.002-1.035); SQUAMOUS EPITHELIAL CELL UR AU 0 /HPF (0-6); UROBILINOGEN, URINE AUTO 0.2 mg/dL (0.0-2.0); WBC, URINE AUTO 24 /HPF (0-3)
== END ==
LOC: M LAB REF 15:09
PROVIDERS: ATTEND Physician Assistant Medical
DX: N39.0 Urinary tract infection, site not specified (principal)

== ENCOUNTER → 2019-08-16 | Outpatient (REF) | payer MEDICARE, MEDICAID ==
[~2019-08-16] MED LIST changes: -MECL-68 PO; +MECL1TAB31 PO
[2019-08-16 11:33] LABS: APPEARANCE, URINE CLEAR (CLEAR); BACTERIA, URINE AUTO 1+ (NEGATIVE); BILIRUBIN, URINE AUTO NEGATIVE (NEGATIVE); BLOOD, URINE BLOOD 2+ (NEGATIVE); COLOR, URINE STRAW (YELLOW); GLUCOSE, URINE (UA) AUTO NEGATIVE (NEGATIVE); KETONE, URINE AUTO NEGATIVE (NEGATIVE); LEUKOCYTE ESTERASE, URINE AUTO TRACE (NEGATIVE); NITRITE, URINE AUTO NEGATIVE (NEGATIVE); PROTEIN, URINE AUTO NEGATIVE (NEGATIVE); RBC, URINE AUTO 4 /HPF (0-3); SPECIFIC GRAVITY URINE AUTO 1.008 (1.002-1.035); SQUAMOUS EPITHELIAL CELL UR AU 0 /HPF (0-6); UROBILINOGEN, URINE AUTO 0.2 mg/dL (0.0-2.0); WBC, URINE AUTO 3 /HPF (0-3)
== END ==
LOC: M LAB REF 10:55
PROVIDERS: ATTEND Physician Assistant Medical
DX: N39.0 Urinary tract infection, site not specified (principal)

== ENCOUNTER → 2019-10-21 | Outpatient (REF) | payer MEDICARE, MEDICAID ==
[2019-10-21 14:41] LABS: APPEARANCE, URINE CLEAR (CLEAR); BACTERIA, URINE AUTO NEGATIVE (NEGATIVE); BILIRUBIN, URINE AUTO NEGATIVE (NEGATIVE); BLOOD, URINE BLOOD NEGATIVE (NEGATIVE); COLOR, URINE YELLOW (YELLOW); GLUCOSE, URINE (UA) AUTO 1+ mg/dL (NEGATIVE); KETONE, URINE AUTO NEGATIVE (NEGATIVE); LEUKOCYTE ESTERASE, URINE AUTO TRACE (NEGATIVE); MUCUS, URINE SMALL (NEGATIVE); NITRITE, URINE AUTO NEGATIVE (NEGATIVE); PROTEIN, URINE AUTO NEGATIVE (NEGATIVE); RBC, URINE AUTO 1 /HPF (0-3); SPECIFIC GRAVITY URINE AUTO 1.026 (1.002-1.035); SQUAMOUS EPITHELIAL CELL UR AU 0 /HPF (0-6); UROBILINOGEN, URINE AUTO 0.2 mg/dL (0.0-2.0); WBC, URINE AUTO 6 /HPF (0-3)
== END ==
LOC: M LAB REF 13:51
PROVIDERS: ATTEND Physician Assistant
DX: N39.0 Urinary tract infection, site not specified (principal)

== ENCOUNTER → 2020-01-23 | Outpatient (REF) | payer MEDICARE, MEDICAID ==
[2020-01-23 18:51] LABS: BASO % 0.3 % (0.0-1.0); EOS # 0.1 10^3/uL (0.0-0.5); EOS % 1.4 % (0.0-3.0); HEMATOCRIT 42.7 % (36.0-47.0); HEMOGLOBIN 13.9 g/dl (12.0-15.5); LYMPH # 1.8 10^3/uL (1.5-5.0); LYMPH % 29.5 % (24.0-44.0); MEAN CORPUSCULAR HEMOGLOBIN 31.2 pg (27.0-33.0); MEAN CORPUSCULAR HGB CONC 32.6 g/dl (32.0-36.5); MEAN CORPUSCULAR VOLUME 95.7 fl (80.0-96.0); MONO # 0.7 10^3/uL (0.0-0.8); MONO % 10.6 % (0.0-5.0); NEUTROPHILS # 3.6 10^3/uL (1.5-8.5); PLATELET COUNT, AUTOMATED 196 10^3/uL (150-450); RED BLOOD COUNT 4.46 10^6/uL (4.00-5.40); WHITE BLOOD COUNT 6.2 10^3/uL (4.0-10.0)
[2020-01-23 18:57] LABS: ALT/SGPT 24 U/L (12-78); BILIRUBIN,TOTAL 0.7 MG/DL (0.2-1.0); BLOOD UREA NITROGEN 12 MG/DL (7-18); CALCIUM LEVEL 9.1 MG/DL (8.8-10.2); CARBON DIOXIDE LEVEL 28 MEQ/L (21-32); CHLORIDE LEVEL 109 MEQ/L (98-107); CHOLESTEROL LEVEL 254 MG/DL (<200); CHOLESTEROL RISK RATIO 4.031 (<5); CREATININE FOR GFR 0.85 MG/DL (0.55-1.30); FREE T4 1.06 NG/DL (0.76-1.46); GLOMERULAR FILTRATION RATE > 60.0 (>39); GLUCOSE, FASTING 105 MG/DL (70-100); HDL CHOLESTEROL 63 MG/DL (>40); LDL CHOLESTEROL 164 MG/DL (<100); NON-HDL-C 191 MG/DL; POTASSIUM SERUM 4.1 MEQ/L (3.5-5.1); SODIUM LEVEL 143 MEQ/L (136-145); TOTAL PROTEIN 7.6 GM/DL (6.4-8.2); TRIGLYCERIDES LEVEL 133 MG/DL (<150)
[2020-01-23 18:59] LABS: HEMOGLOBIN A1c 6.4 %
[2020-01-23 19:01] LABS: TOTAL 25(OH) VITAMIN D 28.2 NG/ML (30.0-100.0)
[2020-01-23 19:26] LABS: MALB URINE SIEMENS 56.2 MG/L; MAU/CREAT RATIO 26.7 MCG/MG (0.0-30.0)
== END ==
LOC: M LAB REF 16:47
PROVIDERS: ATTEND Physician Assistant
DX: H81.10 Benign paroxysmal vertigo, unspecified ear (principal); E66.09 Other obesity due to excess calories; E11.9 Type 2 diabetes mellitus without complications; D64.9 Anemia, unspecified; E78.5 Hyperlipidemia, unspecified; E55.9 Vitamin D deficiency, unspecified; I10 Essential (primary) hypertension; Z68.34 Body mass index [BMI] 34.0-34.9, adult

== ENCOUNTER 2020-11-04 07:40 | Emergency (ER) | payer MEDICARE, MEDICAID ==
[~2020-11-04] VITALS: Ht 157.5 cm; Wt 84.1 kg
[2020-11-04 09:01] LABS: BASO % 0.3 % (0.0-1.0); EOS # 0.1 10^3/uL (0.0-0.5); EOS % 1.1 % (0.0-3.0); HEMATOCRIT 42.7 % (36.0-47.0); HEMOGLOBIN 13.5 g/dl (12.0-15.5); LYMPH % 16.5 % (24.0-44.0); MEAN CORPUSCULAR HEMOGLOBIN 30.1 pg (27.0-33.0); MEAN CORPUSCULAR HGB CONC 31.6 g/dl (32.0-36.5); MEAN CORPUSCULAR VOLUME 95.1 fl (80.0-96.0); MONO # 0.5 10^3/uL (0.0-0.8); MONO % 8.4 % (2.0-8.0); NEUTROPHILS # 4.5 10^3/uL (1.5-8.5); NEUTROPHILS % 73.5 % (36.0-66.0); PLATELET COUNT, AUTOMATED 202 10^3/uL (150-450); RED BLOOD COUNT 4.49 10^6/uL (4.00-5.40); WHITE BLOOD COUNT 6.2 10^3/uL (4.0-10.0)
[2020-11-04] MEDS ORDERED: ISOVUE-370 76% 100ML VIAL As Ordered ONE (09:26)
[2020-11-04 09:32] LABS: ALBUMIN 3.7 GM/DL (3.2-5.2); BILIRUBIN,DIRECT 0.1 MG/DL (0.0-0.2); BILIRUBIN,TOTAL 0.4 MG/DL (0.2-1.0); TOTAL PROTEIN 7.2 GM/DL (6.4-8.2)
--- NOTE | 2020-11-04 10:13 | REP ---
INDICATION: hematuria, ct urogram please. COMPARISON: 05/18/2019 TECHNIQUE: Axial precontrast, contrast-enhanced and delayed images from the lung bases to the pubic symphysis using 100 cc Isovue 370 intravenous contrast material. Coronal and sagittal reformations obtained. This CT examination was performed using the following dose reduction techniques: Automated exposure control, adjustment of mA and/or kv according to the patient's size, and the use of iterative reconstruction technique. FINDINGS: Evaluation of the urinary tract system demonstrates minimal bilateral renovascular calcifications. There is a small focal area of scarring along the anterior margin of the lower pole right kidney. No hydronephrosis, nephrolithiasis, cystic or renal mass lesion. No inflammatory stranding. Delayed images demonstrate normal excretion to the collecting system without hydroureteronephrosis and the bladder is grossly unremarkable. Liver, spleen, pancreas, gallbladder, and bilateral adrenal glands are normal. Evaluation of the enteric system demonstrates a small to moderate hiatal hernia at the gastroesophageal junction. A spigelian hernia is again identified along the left anterior abdominopelvic wall which now contains mesenteric fat and nonobstructed portion of distal descending through proximal sigmoid colon. There is no evidence for bowel obstruction. Normal terminal ileum and appendix are identified in the right lower quadrant. Diffuse colonic diverticulosis noted without diverticulitis. Pelvis demonstrates normal bladder and age-appropriate uterus/adnexa. No ascites. No free air. No intraperitoneal or retroperitoneal adenopathy. Abdominal aorta and vasculature demonstrate atherosclerotic changes without aneurysm or dissection. Musculoskeletal structures demonstrate age-related degenerative changes without acute osseous abnormality. IMPRESSION: No acute abdominopelvic pathology appreciated. Left-sided spigelian hernia now contains mesenteric fat as well as nonobstructed distal descending through proximal sigmoid colon. Diverticulosis without acute diverticulitis. Relatively normal appearance to the urinary tract system without acute process. Further chronic nonacute findings as described above. <Electronically signed by José Luis Joshua > 11/04/20 [id number]
[2020-11-04 11:48] VITALS: BP 160/82
== END 2020-11-04 11:54 | disposition home or self-care (01) ==
LOC: M ED 07:40
DX: K57.30 Diverticulosis of large intestine without perforation or abscess without bleeding (principal); R10.30 Lower abdominal pain, unspecified; K43.9 Ventral hernia without obstruction or gangrene; E11.9 Type 2 diabetes mellitus without complications; I10 Essential (primary) hypertension; E78.5 Hyperlipidemia, unspecified; J44.9 Chronic obstructive pulmonary disease, unspecified; F32.9 Major depressive disorder, single episode, unspecified; Z79.84 Long term (current) use of oral hypoglycemic drugs; Z79.899 Other long term (current) drug therapy
CPT/HCPCS: 74178; 80047; 80076; 81001; 83690; 85025; 87086; 99284; Q9967

== ENCOUNTER → 2020-12-13 | Outpatient (CLI) | payer MEDICARE, MEDICAID ==
[2020-12-13 10:43] LABS: ALBUMIN 3.9 GM/DL (3.2-5.2); ALT/SGPT 22 U/L (12-78); BILIRUBIN,TOTAL 0.6 MG/DL (0.2-1.0); BLOOD UREA NITROGEN 13 MG/DL (7-18); CALCIUM LEVEL 9.2 MG/DL (8.8-10.2); CARBON DIOXIDE LEVEL 33 MEQ/L (21-32); CHLORIDE LEVEL 104 MEQ/L (98-107); FREE T4 0.91 NG/DL (0.76-1.46); GLOMERULAR FILTRATION RATE > 60.0 (>39); GLUCOSE, FASTING 109 MG/DL (70-100); POTASSIUM SERUM 4.3 MEQ/L (3.5-5.1); SODIUM LEVEL 140 MEQ/L (136-145); TOTAL PROTEIN 7.3 GM/DL (6.4-8.2)
[2020-12-13 10:45] LABS: HEMOGLOBIN A1c 6.3 %
== END ==
LOC: M LAB 08:28
PROVIDERS: ATTEND Family Medicine Addiction Medicine
DX: E11.9 Type 2 diabetes mellitus without complications (principal)

== ENCOUNTER 2021-01-22 15:15 | Emergency (ER) | payer MEDICARE, MEDICAID ==
[~2021-01-22] VITALS: Ht 157.5 cm; Wt 84.1 kg
[2021-01-22 15:16] VITALS: BP 182/81
--- NOTE | 2021-01-22 16:41 | REP ---
INDICATION: pain/swelling COMPARISON: None. 04/12/2019. TECHNIQUE: Real time compression and duplex Doppler interrogation of the right lower extremity deep venous system is performed, including the left common femoral vein.Compression of the right peroneal and posterior tibial veins is performed. FINDINGS: The right common femoral, superficial femoral and popliteal veins are fully compressible with transducer pressure and demonstrate normal spontaneous and phasic flow, without evidence of deep venous thrombosis.The left common femoral vein demonstrates no thrombus.The visualized right peroneal and posterior tibial veins demonstrate no thrombus. IMPRESSION: No evidence of deep venous thrombosis of the right lower extremity femoral popliteal venous system.The visualized right peroneal and posterior tibial veins demonstrate no thrombus. <Electronically signed by J Carlos Parsons > 01/22/21 [id number]
[2021-01-22 18:41] LABS: BASO % 0.4 % (0.0-1.0); EOS # 0.1 10^3/uL (0.0-0.5); EOS % 1.4 % (0.0-3.0); HEMATOCRIT 44.9 % (36.0-47.0); HEMOGLOBIN 14.3 g/dl (12.0-15.5); LYMPH # 1.8 10^3/uL (1.5-5.0); LYMPH % 21.9 % (24.0-44.0); MEAN CORPUSCULAR HEMOGLOBIN 29.7 pg (27.0-33.0); MEAN CORPUSCULAR HGB CONC 31.8 g/dl (32.0-36.5); MEAN CORPUSCULAR VOLUME 93.2 fl (80.0-96.0); MONO # 0.6 10^3/uL (0.0-0.8); MONO % 7.8 % (2.0-8.0); NEUTROPHILS # 5.5 10^3/uL (1.5-8.5); NEUTROPHILS % 68.2 % (36.0-66.0); PLATELET COUNT, AUTOMATED 194 10^3/uL (150-450); RED BLOOD COUNT 4.82 10^6/uL (4.00-5.40)
[2021-01-22 19:07] LABS: BLOOD UREA NITROGEN 12 MG/DL (7-18); CALCIUM LEVEL 9.2 MG/DL (8.8-10.2); CARBON DIOXIDE LEVEL 28 MEQ/L (21-32); CHLORIDE LEVEL 108 MEQ/L (98-107); CREATININE FOR GFR 0.72 MG/DL (0.55-1.30); GLOMERULAR FILTRATION RATE > 60.0 (>39); GLUCOSE, FASTING 123 MG/DL (70-100); NT-PRO BNP 229 PG/ML (<450); POTASSIUM SERUM 5.1 MEQ/L (3.5-5.1); SODIUM LEVEL 141 MEQ/L (136-145)
[2021-01-22 19:30] LABS: ERYTHROCYTE SEDIMENTATION RATE 13 mm/hr (0-30)
== END 2021-01-22 20:05 | disposition home or self-care (01) ==
LOC: M ED 15:15
DX: R22.41 Localized swelling, mass and lump, right lower limb (principal); E11.9 Type 2 diabetes mellitus without complications; I10 Essential (primary) hypertension; E78.00 Pure hypercholesterolemia, unspecified; J44.9 Chronic obstructive pulmonary disease, unspecified; K21.9 Gastro-esophageal reflux disease without esophagitis; F32.9 Major depressive disorder, single episode, unspecified; Z87.440 Personal history of urinary (tract) infections; Z79.899 Other long term (current) drug therapy

== ENCOUNTER → 2021-02-25 | Outpatient (REF) | payer MEDICARE, MEDICAID ==
[2021-02-25 17:12] LABS: APPEARANCE, URINE HAZY (CLEAR); BACTERIA, URINE AUTO 1+ (NEGATIVE); BILIRUBIN, URINE AUTO NEGATIVE (NEGATIVE); BLOOD, URINE BLOOD 1+ (NEGATIVE); COLOR, URINE YELLOW (YELLOW); GLUCOSE, URINE (UA) AUTO NEGATIVE (NEGATIVE); KETONE, URINE AUTO TRACE mg/dL (NEGATIVE); LEUKOCYTE ESTERASE, URINE AUTO 2+ (NEGATIVE); MUCUS, URINE SMALL (NEGATIVE); NITRITE, URINE AUTO POSITIVE (NEGATIVE); PROTEIN, URINE AUTO 1+ mg/dL (NEGATIVE); RBC, URINE AUTO 18 /HPF (0-3); SPECIFIC GRAVITY URINE AUTO 1.029 (1.002-1.035); SQUAMOUS EPITHELIAL CELL UR AU 2 /HPF (0-6); WBC, URINE AUTO 68 /HPF (0-3)
== END ==
LOC: M LAB REF 16:25
PROVIDERS: ATTEND Physician Assistant Medical
DX: N39.0 Urinary tract infection, site not specified (principal)

== ENCOUNTER 2021-10-09 09:09 | Emergency (ER) | payer MEDICARE, MEDICAID ==
[~2021-10-09] VITALS: Ht 157.5 cm; Wt 81.8 kg
[~2021-10-09 09:09] MED LIST changes: -LISI10TA15 PO; +LISI10TA24 PO
[2021-10-09 09:10] VITALS: BP 183/78
== END 2021-10-09 11:44 | disposition left against medical advice (07) ==
LOC: M ED 09:09
DX: Z53.29 Procedure and treatment not carried out because of patient's decision for other reasons (principal)

== ENCOUNTER → 2021-12-23 | Outpatient (REF) | payer MEDICARE, MEDICAID ==
[2021-12-23 13:32] LABS: APPEARANCE, URINE HAZY (CLEAR); BACTERIA, URINE AUTO 3+ (NEGATIVE); BILIRUBIN, URINE AUTO NEGATIVE (NEGATIVE); BLOOD, URINE BLOOD 1+ (NEGATIVE); COLOR, URINE AMBER (YELLOW); GLUCOSE, URINE (UA) AUTO NEGATIVE (NEGATIVE); GRANULAR CAST, URINE AUTO 1 /LPF; KETONE, URINE AUTO TRACE mg/dL (NEGATIVE); LEUKOCYTE ESTERASE, URINE AUTO 1+ (NEGATIVE); MUCUS, URINE SMALL (NEGATIVE); NITRITE, URINE AUTO POSITIVE (NEGATIVE); PROTEIN, URINE AUTO 2+ mg/dL (NEGATIVE); RBC, URINE AUTO 4 /HPF (0-3); SPECIFIC GRAVITY URINE AUTO 1.031 (1.002-1.035); SQUAMOUS EPITHELIAL CELL UR AU 1 /HPF (0-6); TRANSITIONAL EPITHELIAL AUTO <1 /HPF; WBC, URINE AUTO 42 /HPF (0-3)
== END ==
LOC: M LAB REF 12:53
PROVIDERS: ATTEND Physician Assistant Medical
DX: N39.0 Urinary tract infection, site not specified (principal)

== ENCOUNTER → 2022-02-12 | Outpatient (REF) | payer MEDICARE, MEDICAID ==
[2022-02-12 12:57] LABS: APPEARANCE, URINE MANUAL CLEAR (CLEAR); BILIRUBIN, URINE MANUAL NEGATIVE (NEGATIVE); BLOOD URINE MANUAL NEGATIVE (NEGATIVE); COLOR, URINE MANUAL LT YELLOW (YELLOW); GLUCOSE, URINE (UA) MANUAL NEGATIVE (NEGATIVE); KETONE, URINE MANUAL NEGATIVE (NEGATIVE); LEUKOCYTE ESTERASE, URINE MAN NEGATIVE (NEGATIVE); NITRITE, URINE MANUAL NEGATIVE (NEGATIVE); PROTEIN, URINE MANUAL NEGATIVE (NEGATIVE); SPECIFIC GRAVITY,URINE MANUAL 1.015 (1.002-1.035); UROBILINOGEN, URINE MANUAL NORMAL (NORMAL)
== END ==
LOC: M LAB REF 11:58
PROVIDERS: ATTEND Physician Assistant
DX: R30.0 Dysuria (principal)

== ENCOUNTER → 2022-05-03 | Outpatient (REF) | payer MEDICARE, MEDICAID ==
[2022-05-03 20:25] LABS: APPEARANCE, URINE MANUAL CLEAR (CLEAR); BILIRUBIN, URINE MANUAL NEGATIVE (NEGATIVE); BLOOD URINE MANUAL POSITIVE (NEGATIVE); COLOR, URINE MANUAL YELLOW (YELLOW); GLUCOSE, URINE (UA) MANUAL NEGATIVE (NEGATIVE); KETONE, URINE MANUAL NEGATIVE (NEGATIVE); LEUKOCYTE ESTERASE, URINE MAN TRACE (NEGATIVE); NITRITE, URINE MANUAL NEGATIVE (NEGATIVE); PROTEIN, URINE MANUAL TRACE mg/dL (NEGATIVE); SPECIFIC GRAVITY,URINE MANUAL 1.015 (1.002-1.035); UROBILINOGEN, URINE MANUAL NORMAL (NORMAL)
[2022-05-03 21:03] LABS: SQUAMOUS EPITHELIAL CELL URINE SMALL AMOUNT /hpf (SMALL AMT)
[2022-05-03 21:04] LABS: BACTERIA, URINE MOD AMOUNT
== END ==
LOC: M LAB REF 19:43
PROVIDERS: ATTEND Physician Assistant Medical
DX: N39.0 Urinary tract infection, site not specified (principal)

== ENCOUNTER 2022-07-12 13:11 | Emergency (ER) | payer MEDICARE, MEDICAID ==
[~2022-07-12] VITALS: Ht 157.5 cm; Wt 80.1 kg
[2022-07-12 13:12] VITALS: BP 175/76
== END 2022-07-12 14:43 | disposition home or self-care (01) ==
LOC: M ED 13:11
DX: S63.601A Unspecified sprain of right thumb, initial encounter (principal); S63.501A Unspecified sprain of right wrist, initial encounter; W19.XXXA Unspecified fall, initial encounter; Y92.099 Unspecified place in other non-institutional residence as the place of occurrence of the external cause; E11.9 Type 2 diabetes mellitus without complications; I10 Essential (primary) hypertension; F32.9 Major depressive disorder, single episode, unspecified; J44.9 Chronic obstructive pulmonary disease, unspecified; K21.9 Gastro-esophageal reflux disease without esophagitis; E78.5 Hyperlipidemia, unspecified; Z79.84 Long term (current) use of oral hypoglycemic drugs; Z79.899 Other long term (current) drug therapy

== ENCOUNTER 2022-08-27 10:38 | Emergency (ER) | payer MEDICARE, MEDICAID ==
[~2022-08-27] VITALS: Ht 157.5 cm; Wt 195.0 kg
[2022-08-27] MEDS ORDERED: CEFD300C PO (12:27)
[2022-08-27 12:57] VITALS: BP 188/88
== END 2022-08-27 12:58 | disposition home or self-care (01) ==
LOC: M ED 10:38
DX: N30.90 Cystitis, unspecified without hematuria (principal); E11.9 Type 2 diabetes mellitus without complications; I10 Essential (primary) hypertension; E78.5 Hyperlipidemia, unspecified; J44.9 Chronic obstructive pulmonary disease, unspecified; K21.9 Gastro-esophageal reflux disease without esophagitis; F32.A Depression, unspecified; Z79.84 Long term (current) use of oral hypoglycemic drugs; Z79.899 Other long term (current) drug therapy

== ENCOUNTER 2022-09-13 10:52 | Emergency (ER) | payer MEDICARE, MEDICAID ==
[~2022-09-13] VITALS: Ht 157.5 cm; Wt 77.9 kg
[~2022-09-13 10:52] MED LIST changes: +CEFD300C PO
[2022-09-13 12:09] LABS: ALBUMIN 3.7 G/DL (3.2-5.2); ALKALINE PHOSPHATASE 64 U/L (46-116); ALT/SGPT 28 U/L (7.0-40); AST/SGOT 18 U/L (<34); BILIRUBIN,TOTAL 0.4 MG/DL (0.3-1.2); BLOOD UREA NITROGEN 13 MG/DL (9-23); CALCIUM LEVEL 9.7 MG/DL (8.3-10.6); CARBON DIOXIDE LEVEL 32 MMOL/L (20-31); CHLORIDE LEVEL 106 MMOL/L (98-107); GLOMERULAR FILTRATION RATE > 60.0 (>32); GLUCOSE, FASTING 130 MG/DL (74-106); POTASSIUM SERUM 3.9 MMOL/L (3.5-5.1); SODIUM LEVEL 143 MMOL/L (136-145); TOTAL PROTEIN 6.6 G/DL (5.7-8.2)
[2022-09-13 12:40] VITALS: BP 188/84
== END 2022-09-13 12:41 | disposition home or self-care (01) ==
LOC: M ED 10:52
DX: R60.0 Localized edema (principal); E11.9 Type 2 diabetes mellitus without complications; I10 Essential (primary) hypertension; E78.5 Hyperlipidemia, unspecified; Z79.84 Long term (current) use of oral hypoglycemic drugs; Z79.899 Other long term (current) drug therapy

== ENCOUNTER 2022-09-23 08:52 | Emergency (ER) | payer MEDICARE, MEDICAID ==
[~2022-09-23] VITALS: Ht 157.5 cm; Wt 78.4 kg
[~2022-09-23 08:52] MED LIST changes: -METF500T13; +METF500T13 PO; -METO1TAB7; +METO1TAB7 PO; -VENTAER; +VENTAER INH
[2022-09-23 09:34] LABS: BASO % 0.1 % (0.0-1.0); HEMATOCRIT 47.6 % (36.0-47.0); HEMOGLOBIN 15.2 g/dl (12.0-15.5); LYMPH # 1.3 10^3/uL (1.5-5.0); LYMPH % 12.1 % (24.0-44.0); MEAN CORPUSCULAR HEMOGLOBIN 30.3 pg (27.0-33.0); MEAN CORPUSCULAR HGB CONC 31.9 g/dl (32.0-36.5); MONO # 0.8 10^3/uL (0.0-0.8); MONO % 7.5 % (2.0-8.0); NEUTROPHILS # 8.8 10^3/uL (1.5-8.5); NEUTROPHILS % 79.8 % (36.0-66.0); PLATELET COUNT, AUTOMATED 218 10^3/uL (150-450); RED BLOOD COUNT 5.01 10^6/uL (4.00-5.40)
[2022-09-23 09:45] LABS: INR 0.95; PROTHROMBIN TIME 12.9 SECONDS (12.5-14.5)
[2022-09-23] MEDS ORDERED: METOPROLOL TART 25 MG TABLET PO ONE (09:45)
[2022-09-23] MEDS ORDERED: METOPROLOL 5 MG/5 ML VIAL IV SCH (09:45)
[2022-09-23] MEDS ORDERED: DIGOXIN INJ 0.5 MG/2 ML AMP IV ONE ×2 (09:50→12:20)
[2022-09-23 09:54] LABS: BLOOD UREA NITROGEN 20 MG/DL (9-23); CALCIUM LEVEL 9.4 MG/DL (8.3-10.6); CARBON DIOXIDE LEVEL 29 MMOL/L (20-31); CHLORIDE LEVEL 107 MMOL/L (98-107); CREATININE FOR GFR 0.72 MG/DL (0.55-1.30); GLOMERULAR FILTRATION RATE > 60.0 (>32); GLUCOSE, FASTING 139 MG/DL (74-106); POTASSIUM SERUM 3.9 MMOL/L (3.5-5.1); SODIUM LEVEL 145 MMOL/L (136-145)
[2022-09-23 10:01] LABS: RSV AMPLIFICATION NEGATIVE (NEGATIVE)
[2022-09-23] MEDS ORDERED: ASPIRIN 325 MG TAB PO ONE (10:15)
[2022-09-23] MEDS ORDERED: SODIUM CHLORIDE 3% 500 ML IV SCH (10:35)
[2022-09-23] MEDS ORDERED: HOME MED LIST COMPLETE! XX SCH (11:55)
[2022-09-23] MEDS ORDERED: METOPROLOL 5 MG/5 ML VIAL IV STA (12:18)
[2022-09-23] MEDS ORDERED: METOPROLOL 5 MG/5 ML VIAL As Ordered ONE (12:20)
[2022-09-23] MEDS ORDERED: niCARdipine IV 40 MG in IV 1 EA IV SCH (12:20)
[2022-09-23 12:28] VITALS: BP 158/83
[2022-09-23 16:02] VITALS: BP 134/63
== END 2022-09-23 16:15 | disposition short-term general hospital (02) ==
LOC: M ED 08:52 → EDBD 08:52 → M ED 16:15
DX: I63.10 Cerebral infarction due to embolism of unspecified precerebral artery (principal); I10 Essential (primary) hypertension; E11.9 Type 2 diabetes mellitus without complications
CPT/HCPCS: 70450; 71045; 80047; 80048; 85025; 85610; 85730; 87631; 93005; 93041; 94760; 96361; 96365; 96366; 99285; J1160

== ENCOUNTER 2022-10-01 08:49 | Inpatient (IN) | payer MEDICARE, MEDICAID ==
[~2022-10-01] VITALS: Ht 157.5 cm; Wt 73.5 kg
[2022-10-01] MEDS ORDERED: GLUCAGON INJ 1MG VIAL SC PRN (12:40)
[2022-10-01] MEDS ORDERED: BISACODYL 10MG SUPP PR PRN (12:40)
[2022-10-01] MEDS ORDERED: ONDANSETRON 4MG ORAL DISINTEGRATING TAB PO PRN (12:40)
[2022-10-01] MEDS ORDERED: GLUCOSE 4GM CHEW TABLET PO PRN (12:40)
[2022-10-01] MEDS ORDERED: DEXTROSE 50% 50ML SYRINGE IV PRN (12:40)
[2022-10-01] MEDS ORDERED: MECLIZINE 12.5 MG TAB PO PRN (12:40)
[2022-10-01 14:00] VITALS: BP_SYST 112; BP_SYST 165; BP_DIAS 68; BP_DIAS 96
[2022-10-01] MEDS: REMEDY PHYTOPLEX Z-GUARD PASTE 113GM TUBE (FROM STOREROOM PRODUCT) TOP SCH ×2 (16:00→20:46)
[2022-10-01] MEDS ORDERED: XARE15TA PO (16:45)
[2022-10-01] MEDS: INSULIN LISPRO (NovoLOG) PER UNIT SC SCH ×2 (16:46→20:45)
[2022-10-01] MEDS ORDERED: ASPI-404 PO (16:57)
[2022-10-01] MEDS ORDERED: [UNRECOGNIZED DRUG - CODE] PO (16:57)
[2022-10-01] MEDS ORDERED: GLUC1KIT IM (16:57)
[2022-10-01] MEDS ORDERED: MM S100C PO (16:57)
[2022-10-01] MEDS ORDERED: ACET-907 PO (16:57)
[2022-10-01] MEDS ORDERED: ATOR40TA75 PO (16:57)
[2022-10-01] MEDS ORDERED: KAOP262S PO (16:57)
[2022-10-01] MEDS ORDERED: INSUHUMDS SC (16:58)
[2022-10-01] MEDS ORDERED: ONDA4TAB6 PO (17:00)
[2022-10-01] MEDS ORDERED: HOME MED LIST COMPLETE! XX SCH (17:05)
[2022-10-01 17:55] VITALS: BP 139/65
[2022-10-01] MEDS: LOPERAMIDE 2 MG CAPLET PO PRN (17:56)
[2022-10-01] MEDS: **hydrALAZINE HCL** 25 MG TAB PO SCH ×2 (17:57→23:11)
[2022-10-01 20:00] VITALS: BP 133/63
[2022-10-01] MEDS: traZODone 25MG PER 1/2 TABLET PO PRN (20:43)
[2022-10-01] MEDS: ATORVASTATIN 20 MG TAB PO SCH (20:43)
[2022-10-01] MEDS: ACETAMINOPHEN TAB 650MG DOSE (2X325MG) PO PRN (20:44)
[2022-10-01] MEDS ORDERED: SENNA 8.6 MG TAB (SENOKOT) PO SCH (21:00)
[2022-10-01] MEDS ORDERED: DOCUSATE SODIUM 100MG CAPSULE PO SCH (21:00)
[2022-10-01] MEDS: COMBIVENT RESPIMAT 100-20MCG INHALER 4GM INH SCH (21:28)
[2022-10-01 23:09] VITALS: BP 132/61
[2022-10-02 06:00] VITALS: BP 121/59
[2022-10-02] MEDS: **hydrALAZINE HCL** 25 MG TAB PO SCH ×3 (06:00→17:55)
[2022-10-02] MEDS: INSULIN LISPRO (NovoLOG) PER UNIT SC SCH ×4 (07:30→20:22)
[2022-10-02 08:22] LABS: BASO % 0.3 % (0.0-1.0); EOS # 0.2 10^3/uL (0.0-0.5); HEMATOCRIT 38.9 % (36.0-47.0); HEMOGLOBIN 12.6 g/dl (12.0-15.5); LYMPH # 1.2 10^3/uL (1.5-5.0); LYMPH % 14.3 % (24.0-44.0); MEAN CORPUSCULAR HEMOGLOBIN 30.7 pg (27.0-33.0); MEAN CORPUSCULAR HGB CONC 32.4 g/dl (32.0-36.5); MEAN CORPUSCULAR VOLUME 94.9 fl (80.0-96.0); MONO # 0.8 10^3/uL (0.0-0.8); MONO % 8.7 % (2.0-8.0); NEUTROPHILS # 6.4 10^3/uL (1.5-8.5); NEUTROPHILS % 74.4 % (36.0-66.0); PLATELET COUNT, AUTOMATED 190 10^3/uL (150-450); WHITE BLOOD COUNT 8.6 10^3/uL (4.0-10.0)
[2022-10-02 08:32] LABS: INR 0.99; PROTHROMBIN TIME 13.3 SECONDS (12.5-14.5)
[2022-10-02 08:33] LABS: PARTIAL THROMBOPLASTIN TIME 27.1 SECONDS (24.8-34.2)
[2022-10-02 08:49] LABS: ALBUMIN 2.8 G/DL (3.2-5.2); ALKALINE PHOSPHATASE 90 U/L (46-116); ALT/SGPT 60 U/L (7.0-40); AST/SGOT 35 U/L (<34); BILIRUBIN,TOTAL 0.9 MG/DL (0.3-1.2); BLOOD UREA NITROGEN 13 MG/DL (9-23); CALCIUM LEVEL 8.8 MG/DL (8.3-10.6); CARBON DIOXIDE LEVEL 31 MMOL/L (20-31); CHLORIDE LEVEL 105 MMOL/L (98-107); CREATININE FOR GFR 0.58 MG/DL (0.55-1.30); GLOMERULAR FILTRATION RATE > 60.0 (>32); GLUCOSE, FASTING 178 MG/DL (74-106); POTASSIUM SERUM 3.8 MMOL/L (3.5-5.1); SODIUM LEVEL 143 MMOL/L (136-145); TOTAL PROTEIN 5.8 G/DL (5.7-8.2)
[2022-10-02] MEDS: REMEDY PHYTOPLEX Z-GUARD PASTE 113GM TUBE (FROM STOREROOM PRODUCT) TOP SCH ×3 (09:00→20:53)
[2022-10-02] MEDS ORDERED: ASPIRIN ENTERIC 325MG TAB PO SCH (09:00)
[2022-10-02] MEDS ORDERED: METOPROLOL SUCC (TopROL XL) 50MG **XL** TAB PO SCH (09:00)
[2022-10-02 09:19] VITALS: BP 162/71
[2022-10-02] MEDS: PANTOPRAZOLE 40MG TAB (PROTONIX) PO SCH (09:22)
[2022-10-02] MEDS: FUROSEMIDE 20 MG TAB PO SCH (09:22)
[2022-10-02] MEDS: FLUoxetine 10 MG CAP PO SCH (09:22)
[2022-10-02] MEDS: COMBIVENT RESPIMAT 100-20MCG INHALER 4GM INH SCH ×4 (09:23→21:27)
[2022-10-02] MEDS: LOPERAMIDE 2 MG CAPLET PO PRN (09:23)
[2022-10-02 12:06] VITALS: BP 154/66
[2022-10-02 14:00] VITALS: BP 151/69
[2022-10-02] MEDS: METOPROLOL TART 12.5 MG PER 1/2 TAB PO SCH ×2 (14:25→20:54)
[2022-10-02] MEDS: cefTRIAXone SOD 1 GM in D5W MINI-BAG PLUS 50 ML IV SCH (14:26)
[2022-10-02 17:50] VITALS: BP 138/66
[2022-10-02 20:00] VITALS: BP 135/63
[2022-10-02] MEDS: ATORVASTATIN 20 MG TAB PO SCH (20:52)
[2022-10-02] MEDS: ACETAMINOPHEN TAB 650MG DOSE (2X325MG) PO PRN (20:53)
[2022-10-02] MEDS: traZODone 25MG PER 1/2 TABLET PO PRN (20:53)
[2022-10-03 06:00] VITALS: BP 133/63
[2022-10-03] MEDS: METOPROLOL TART 12.5 MG PER 1/2 TAB PO SCH (06:00)
[2022-10-03] MEDS: **hydrALAZINE HCL** 25 MG TAB PO SCH ×2 (06:00)
[2022-10-03] MEDS: COMBIVENT RESPIMAT 100-20MCG INHALER 4GM INH SCH ×3 (07:17→20:00)
[2022-10-03] MEDS: ACETAMINOPHEN TAB 650MG DOSE (2X325MG) PO PRN (07:47)
[2022-10-03] MEDS: INSULIN LISPRO (NovoLOG) PER UNIT SC SCH ×4 (07:47→20:42)
[2022-10-03] MEDS: PANTOPRAZOLE 40MG TAB (PROTONIX) PO SCH (07:48)
[2022-10-03] MEDS: FLUoxetine 10 MG CAP PO SCH (07:48)
[2022-10-03] MEDS: REMEDY PHYTOPLEX Z-GUARD PASTE 113GM TUBE (FROM STOREROOM PRODUCT) TOP SCH ×3 (07:48→20:47)
[2022-10-03] MEDS: FUROSEMIDE 20 MG TAB PO SCH (07:49)
[2022-10-03 11:10] LABS: BASO % 0.3 % (0.0-1.0); EOS # 0.2 10^3/uL (0.0-0.5); EOS % 1.6 % (0.0-3.0); HEMATOCRIT 41.1 % (36.0-47.0); HEMOGLOBIN 13.2 g/dl (12.0-15.5); LYMPH # 1.1 10^3/uL (1.5-5.0); LYMPH % 10.8 % (24.0-44.0); MEAN CORPUSCULAR HEMOGLOBIN 30.7 pg (27.0-33.0); MEAN CORPUSCULAR HGB CONC 32.1 g/dl (32.0-36.5); MEAN CORPUSCULAR VOLUME 95.6 fl (80.0-96.0); MONO # 0.9 10^3/uL (0.0-0.8); MONO % 8.2 % (2.0-8.0); NEUTROPHILS # 8.3 10^3/uL (1.5-8.5); NEUTROPHILS % 78.7 % (36.0-66.0); PLATELET COUNT, AUTOMATED 227 10^3/uL (150-450); WHITE BLOOD COUNT 10.6 10^3/uL (4.0-10.0)
[2022-10-03 11:43] LABS: BLOOD UREA NITROGEN 13 MG/DL (9-23); CARBON DIOXIDE LEVEL 26 MMOL/L (20-31); CHLORIDE LEVEL 106 MMOL/L (98-107); CREATININE FOR GFR 0.54 MG/DL (0.55-1.30); GLOMERULAR FILTRATION RATE > 60.0 (>32); GLUCOSE, FASTING 180 MG/DL (74-106); SODIUM LEVEL 143 MMOL/L (136-145)
[2022-10-03] MEDS: cefTRIAXone SOD 1 GM in D5W MINI-BAG PLUS 50 ML IV SCH ×2 (12:35→15:35)
[2022-10-03 14:00] VITALS: BP 134/65
[2022-10-03] MEDS: RIVAROXABAN 15MG TAB (XARELTO) PO SCH (17:52)
[2022-10-03] MEDS: LevoFLOXacin 250 MG TABLET PO SCH (17:52)
[2022-10-03 20:00] VITALS: BP 154/72
[2022-10-03] MEDS: ATORVASTATIN 20 MG TAB PO SCH (20:46)
[2022-10-03] MEDS: CARVedilol 3.125 MG TAB PO SCH (20:46)
[2022-10-03] MEDS: traZODone 25MG PER 1/2 TABLET PO SCH (20:46)
[2022-10-04 06:00] VITALS: BP 124/58
[2022-10-04] MEDS: COMBIVENT RESPIMAT 100-20MCG INHALER 4GM INH SCH ×3 (07:04→20:01)
[2022-10-04] MEDS: CARVedilol 3.125 MG TAB PO SCH ×2 (08:28→20:50)
[2022-10-04] MEDS: INSULIN LISPRO (NovoLOG) PER UNIT SC SCH ×4 (08:28→20:00)
[2022-10-04] MEDS: FUROSEMIDE 20 MG TAB PO SCH (08:29)
[2022-10-04] MEDS: PANTOPRAZOLE 40MG TAB (PROTONIX) PO SCH (08:29)
[2022-10-04] MEDS: REMEDY PHYTOPLEX Z-GUARD PASTE 113GM TUBE (FROM STOREROOM PRODUCT) TOP SCH ×3 (08:29→21:01)
[2022-10-04] MEDS: FLUoxetine 10 MG CAP PO SCH (08:29)
[2022-10-04] MEDS: cefTRIAXone SOD 1 GM in D5W MINI-BAG PLUS 50 ML IV SCH (12:56)
[2022-10-04 14:00] VITALS: BP 133/71
[2022-10-04] MEDS: ACETAMINOPHEN TAB 650MG DOSE (2X325MG) PO PRN ×2 (15:32→17:45)
[2022-10-04] MEDS: LevoFLOXacin 250 MG TABLET PO SCH (17:46)
[2022-10-04] MEDS: RIVAROXABAN 15MG TAB (XARELTO) PO SCH (17:46)
[2022-10-04 20:00] VITALS: BP 141/65
[2022-10-04] MEDS: ATORVASTATIN 20 MG TAB PO SCH (21:01)
[2022-10-04] MEDS: DOCUSATE SODIUM 100MG CAPSULE PO PRN (21:01)
[2022-10-04] MEDS: traZODone 25MG PER 1/2 TABLET PO SCH (21:01)
[2022-10-05 06:00] VITALS: BP 148/52
[2022-10-05] MEDS: COMBIVENT RESPIMAT 100-20MCG INHALER 4GM INH SCH ×3 (06:59→20:53)
[2022-10-05] MEDS: CARVedilol 3.125 MG TAB PO SCH ×2 (08:38→21:04)
[2022-10-05] MEDS: REMEDY PHYTOPLEX Z-GUARD PASTE 113GM TUBE (FROM STOREROOM PRODUCT) TOP SCH ×3 (08:39→21:05)
[2022-10-05] MEDS: FLUoxetine 10 MG CAP PO SCH (08:39)
[2022-10-05] MEDS: PANTOPRAZOLE 40MG TAB (PROTONIX) PO SCH (08:39)
[2022-10-05] MEDS: FUROSEMIDE 20 MG TAB PO SCH (08:39)
[2022-10-05] MEDS: INSULIN LISPRO (NovoLOG) PER UNIT SC SCH ×4 (08:41→21:00)
[2022-10-05 14:00] VITALS: BP 138/63
[2022-10-05] MEDS: ACETAMINOPHEN TAB 650MG DOSE (2X325MG) PO PRN ×2 (17:25→21:05)
[2022-10-05] MEDS: LevoFLOXacin 250 MG TABLET PO SCH (17:25)
[2022-10-05] MEDS: RIVAROXABAN 15MG TAB (XARELTO) PO SCH (17:25)
[2022-10-05 20:00] VITALS: BP 136/63
[2022-10-05] MEDS: DOCUSATE SODIUM 100MG CAPSULE PO PRN (21:04)
[2022-10-05] MEDS: SENNA 8.6 MG TAB (SENOKOT) PO PRN (21:04)
[2022-10-05] MEDS: traZODone 25MG PER 1/2 TABLET PO SCH (21:05)
[2022-10-05] MEDS: ATORVASTATIN 20 MG TAB PO SCH (21:05)
[2022-10-06 06:00] VITALS: BP 139/67
[2022-10-06] MEDS: COMBIVENT RESPIMAT 100-20MCG INHALER 4GM INH SCH ×3 (07:29→21:49)
[2022-10-06] MEDS: CARVedilol 3.125 MG TAB PO SCH ×3 (08:37→21:00)
[2022-10-06] MEDS: INSULIN LISPRO (NovoLOG) PER UNIT SC SCH (09:09)
[2022-10-06] MEDS: PANTOPRAZOLE 40MG TAB (PROTONIX) PO SCH (09:09)
[2022-10-06] MEDS: FLUoxetine 10 MG CAP PO SCH (09:09)
[2022-10-06] MEDS: FUROSEMIDE 20 MG TAB PO SCH (09:09)
[2022-10-06] MEDS: REMEDY PHYTOPLEX Z-GUARD PASTE 113GM TUBE (FROM STOREROOM PRODUCT) TOP SCH ×3 (09:10→21:00)
[2022-10-06 10:05] LABS: BASO % 0.5 % (0.0-1.0); EOS # 0.2 10^3/uL (0.0-0.5); HEMATOCRIT 37.1 % (36.0-47.0); MEAN CORPUSCULAR HEMOGLOBIN 31.1 pg (27.0-33.0); MEAN CORPUSCULAR HGB CONC 32.3 g/dl (32.0-36.5); MEAN CORPUSCULAR VOLUME 96.1 fl (80.0-96.0); MONO # 0.5 10^3/uL (0.0-0.8); MONO % 8.6 % (2.0-8.0); NEUTROPHILS # 4.2 10^3/uL (1.5-8.5); NEUTROPHILS % 70.6 % (36.0-66.0); PLATELET COUNT, AUTOMATED 226 10^3/uL (150-450); RED BLOOD COUNT 3.86 10^6/uL (4.00-5.40); WHITE BLOOD COUNT 5.9 10^3/uL (4.0-10.0)
[2022-10-06 11:29] LABS: BLOOD UREA NITROGEN 12 MG/DL (9-23); CALCIUM LEVEL 8.4 MG/DL (8.3-10.6); CARBON DIOXIDE LEVEL 28 MMOL/L (20-31); CHLORIDE LEVEL 107 MMOL/L (98-107); CREATININE FOR GFR 0.63 MG/DL (0.55-1.30); GLOMERULAR FILTRATION RATE > 60.0 (>32); GLUCOSE, FASTING 224 MG/DL (74-106); POTASSIUM SERUM 3.9 MMOL/L (3.5-5.1); SODIUM LEVEL 136 MMOL/L (136-145)
[2022-10-06 14:00] VITALS: BP 154/67
[2022-10-06] MEDS: LevoFLOXacin 250 MG TABLET PO SCH (17:13)
[2022-10-06] MEDS: RIVAROXABAN 15MG TAB (XARELTO) PO SCH (17:13)
[2022-10-06 20:00] VITALS: BP 132/60
[2022-10-06] MEDS: SENNA 8.6 MG TAB (SENOKOT) PO PRN (20:59)
[2022-10-06] MEDS: ATORVASTATIN 20 MG TAB PO SCH (20:59)
[2022-10-06] MEDS: ACETAMINOPHEN TAB 650MG DOSE (2X325MG) PO PRN (21:00)
[2022-10-06] MEDS: traZODone 25MG PER 1/2 TABLET PO SCH (21:00)
[2022-10-07 06:00] VITALS: BP 134/63
[2022-10-07] MEDS: PANTOPRAZOLE 40MG TAB (PROTONIX) PO SCH (07:09)
[2022-10-07] MEDS: FLUoxetine 10 MG CAP PO SCH (07:09)
[2022-10-07] MEDS: CARVedilol 3.125 MG TAB PO SCH ×2 (07:09→20:01)
[2022-10-07] MEDS: FUROSEMIDE 20 MG TAB PO SCH (07:09)
[2022-10-07] MEDS: REMEDY PHYTOPLEX Z-GUARD PASTE 113GM TUBE (FROM STOREROOM PRODUCT) TOP SCH ×3 (07:09→20:33)
[2022-10-07] MEDS: COMBIVENT RESPIMAT 100-20MCG INHALER 4GM INH SCH ×3 (08:00→21:10)
[2022-10-07] MEDS: ACETAMINOPHEN TAB 650MG DOSE (2X325MG) PO PRN (09:25)
[2022-10-07 14:00] VITALS: BP 131/63
[2022-10-07] MEDS: RIVAROXABAN 15MG TAB (XARELTO) PO SCH (17:36)
[2022-10-07 19:26] VITALS: BP 133/58
[2022-10-07] MEDS: traZODone 25MG PER 1/2 TABLET PO SCH (20:33)
[2022-10-07] MEDS: ATORVASTATIN 20 MG TAB PO SCH (20:33)
[2022-10-08 04:48] VITALS: BP 143/63
[2022-10-08 06:40] LABS: BASO % 0.3 % (0.0-1.0); EOS # 0.2 10^3/uL (0.0-0.5); HEMATOCRIT 37.4 % (36.0-47.0); HEMOGLOBIN 11.7 g/dl (12.0-15.5); LYMPH # 1.3 10^3/uL (1.5-5.0); LYMPH % 19.9 % (24.0-44.0); MEAN CORPUSCULAR HGB CONC 31.3 g/dl (32.0-36.5); MEAN CORPUSCULAR VOLUME 95.9 fl (80.0-96.0); MONO # 0.7 10^3/uL (0.0-0.8); MONO % 11.1 % (2.0-8.0); NEUTROPHILS # 4.1 10^3/uL (1.5-8.5); NEUTROPHILS % 65.4 % (36.0-66.0); PLATELET COUNT, AUTOMATED 236 10^3/uL (150-450); WHITE BLOOD COUNT 6.3 10^3/uL (4.0-10.0)
[2022-10-08 07:01] LABS: BLOOD UREA NITROGEN 11 MG/DL (9-23); CALCIUM LEVEL 8.5 MG/DL (8.3-10.6); CARBON DIOXIDE LEVEL 31 MMOL/L (20-31); CHLORIDE LEVEL 106 MMOL/L (98-107); CREATININE FOR GFR 0.63 MG/DL (0.55-1.30); GLOMERULAR FILTRATION RATE > 60.0 (>32); GLUCOSE, FASTING 133 MG/DL (74-106); POTASSIUM SERUM 4.3 MMOL/L (3.5-5.1); SODIUM LEVEL 142 MMOL/L (136-145)
[2022-10-08] MEDS: COMBIVENT RESPIMAT 100-20MCG INHALER 4GM INH SCH ×3 (07:07→21:03)
[2022-10-08] MEDS: REMEDY PHYTOPLEX Z-GUARD PASTE 113GM TUBE (FROM STOREROOM PRODUCT) TOP SCH ×3 (09:00→21:09)
[2022-10-08] MEDS: FLUoxetine 10 MG CAP PO SCH (09:40)
[2022-10-08] MEDS: PANTOPRAZOLE 40MG TAB (PROTONIX) PO SCH (09:40)
[2022-10-08] MEDS: FUROSEMIDE 20 MG TAB PO SCH (09:41)
[2022-10-08] MEDS: CARVedilol 3.125 MG TAB PO SCH ×2 (09:41→21:00)
[2022-10-08 14:00] VITALS: BP 178/55
[2022-10-08] MEDS: RIVAROXABAN 15MG TAB (XARELTO) PO SCH (17:34)
[2022-10-08] MEDS: DOCUSATE SODIUM 100MG CAPSULE PO PRN (17:34)
[2022-10-08 21:07] VITALS: BP 124/58
[2022-10-08] MEDS: traZODone 25MG PER 1/2 TABLET PO SCH (21:08)
[2022-10-08] MEDS: ATORVASTATIN 20 MG TAB PO SCH (21:08)
[2022-10-09 06:11] VITALS: BP 130/62
[2022-10-09] MEDS: COMBIVENT RESPIMAT 100-20MCG INHALER 4GM INH SCH ×3 (07:08→20:01)
[2022-10-09] MEDS: REMEDY PHYTOPLEX Z-GUARD PASTE 113GM TUBE (FROM STOREROOM PRODUCT) TOP SCH ×3 (09:00→20:14)
[2022-10-09] MEDS: FLUoxetine 10 MG CAP PO SCH (09:16)
[2022-10-09] MEDS: SENNA 8.6 MG TAB (SENOKOT) PO PRN (09:16)
[2022-10-09] MEDS: PANTOPRAZOLE 40MG TAB (PROTONIX) PO SCH (09:17)
[2022-10-09] MEDS: CARVedilol 3.125 MG TAB PO SCH ×2 (09:17→20:14)
[2022-10-09] MEDS: FUROSEMIDE 20 MG TAB PO SCH (09:17)
[2022-10-09 13:58] VITALS: BP 147/65
[2022-10-09 14:00] VITALS: BP 147/65
[2022-10-09] MEDS: RIVAROXABAN 15MG TAB (XARELTO) PO SCH (17:23)
[2022-10-09 20:00] VITALS: BP 145/67
[2022-10-09] MEDS: traZODone 25MG PER 1/2 TABLET PO SCH (20:14)
[2022-10-09] MEDS: ATORVASTATIN 20 MG TAB PO SCH (20:14)
[2022-10-10 06:00] VITALS: BP 127/60
[2022-10-10] MEDS: COMBIVENT RESPIMAT 100-20MCG INHALER 4GM INH SCH ×3 (07:06→20:42)
[2022-10-10] MEDS: FUROSEMIDE 20 MG TAB PO SCH (08:59)
[2022-10-10] MEDS: PANTOPRAZOLE 40MG TAB (PROTONIX) PO SCH (08:59)
[2022-10-10] MEDS: CARVedilol 3.125 MG TAB PO SCH ×2 (08:59→20:36)
[2022-10-10] MEDS: FLUoxetine 10 MG CAP PO SCH (08:59)
[2022-10-10] MEDS: REMEDY PHYTOPLEX Z-GUARD PASTE 113GM TUBE (FROM STOREROOM PRODUCT) TOP SCH ×3 (09:00→20:37)
[2022-10-10 14:00] VITALS: BP 123/58
[2022-10-10] MEDS: RIVAROXABAN 15MG TAB (XARELTO) PO SCH (17:53)
[2022-10-10] MEDS: DOCUSATE SODIUM 100MG CAPSULE PO PRN (17:53)
[2022-10-10 20:00] VITALS: BP 129/60
[2022-10-10] MEDS: traZODone 25MG PER 1/2 TABLET PO SCH (20:36)
[2022-10-10] MEDS: ATORVASTATIN 20 MG TAB PO SCH (20:37)
[2022-10-11 06:00] VITALS: BP 139/63
[2022-10-11] MEDS: COMBIVENT RESPIMAT 100-20MCG INHALER 4GM INH SCH ×3 (07:30→20:04)
[2022-10-11 08:00] VITALS: BP 126/59
[2022-10-11] MEDS: CARVedilol 3.125 MG TAB PO SCH ×2 (08:56→19:47)
[2022-10-11] MEDS: PANTOPRAZOLE 40MG TAB (PROTONIX) PO SCH (08:56)
[2022-10-11] MEDS: ACETAMINOPHEN TAB 650MG DOSE (2X325MG) PO PRN ×2 (08:56→19:45)
[2022-10-11] MEDS: FUROSEMIDE 20 MG TAB PO SCH (08:56)
[2022-10-11] MEDS: FLUoxetine 10 MG CAP PO SCH (08:56)
[2022-10-11] MEDS: REMEDY PHYTOPLEX Z-GUARD PASTE 113GM TUBE (FROM STOREROOM PRODUCT) TOP SCH ×3 (08:57→21:00)
[2022-10-11] MEDS: LevoFLOXacin 250 MG TABLET PO SCH (10:23)
[2022-10-11 10:24] LABS: BASO % 0.4 % (0.0-1.0); EOS # 0.1 10^3/uL (0.0-0.5); EOS % 1.8 % (0.0-3.0); HEMATOCRIT 40.7 % (36.0-47.0); HEMOGLOBIN 12.9 g/dl (12.0-15.5); LYMPH # 1.2 10^3/uL (1.5-5.0); LYMPH % 18.1 % (24.0-44.0); MEAN CORPUSCULAR HEMOGLOBIN 30.6 pg (27.0-33.0); MEAN CORPUSCULAR HGB CONC 31.7 g/dl (32.0-36.5); MEAN CORPUSCULAR VOLUME 96.4 fl (80.0-96.0); MONO # 0.5 10^3/uL (0.0-0.8); MONO % 7.4 % (2.0-8.0); NEUTROPHILS # 4.9 10^3/uL (1.5-8.5); PLATELET COUNT, AUTOMATED 254 10^3/uL (150-450); RED BLOOD COUNT 4.22 10^6/uL (4.00-5.40); WHITE BLOOD COUNT 6.8 10^3/uL (4.0-10.0)
[2022-10-11 10:54] LABS: BLOOD UREA NITROGEN 12 MG/DL (9-23); CALCIUM LEVEL 8.8 MG/DL (8.3-10.6); CARBON DIOXIDE LEVEL 30 MMOL/L (20-31); CHLORIDE LEVEL 105 MMOL/L (98-107); CREATININE FOR GFR 0.65 MG/DL (0.55-1.30); GLOMERULAR FILTRATION RATE > 60.0 (>32); GLUCOSE, FASTING 236 MG/DL (74-106); POTASSIUM SERUM 3.8 MMOL/L (3.5-5.1); SODIUM LEVEL 142 MMOL/L (136-145)
[2022-10-11 14:00] VITALS: BP 132/62
[2022-10-11] MEDS: RIVAROXABAN 15MG TAB (XARELTO) PO SCH (17:07)
[2022-10-11] MEDS: traZODone 25MG PER 1/2 TABLET PO SCH (19:45)
[2022-10-11] MEDS: ATORVASTATIN 20 MG TAB PO SCH (19:46)
[2022-10-11 20:00] VITALS: BP 145/67
[2022-10-12] MEDS: LevoFLOXacin 250 MG TABLET PO SCH (05:29)
[2022-10-12 06:05] VITALS: BP 132/63
[2022-10-12] MEDS: COMBIVENT RESPIMAT 100-20MCG INHALER 4GM INH SCH ×3 (07:11→21:06)
[2022-10-12] MEDS: CARVedilol 3.125 MG TAB PO SCH ×2 (07:52→19:54)
[2022-10-12] MEDS: PANTOPRAZOLE 40MG TAB (PROTONIX) PO SCH (07:53)
[2022-10-12] MEDS: REMEDY PHYTOPLEX Z-GUARD PASTE 113GM TUBE (FROM STOREROOM PRODUCT) TOP SCH ×3 (07:53→19:55)
[2022-10-12] MEDS: FUROSEMIDE 20 MG TAB PO SCH (07:53)
[2022-10-12] MEDS: FLUoxetine 10 MG CAP PO SCH (07:53)
[2022-10-12] MEDS: ACETAMINOPHEN TAB 650MG DOSE (2X325MG) PO PRN ×2 (07:54→19:54)
[2022-10-12] MEDS: DICLOFENAC EPOLAMINE 1.3% PATCH TOP SCH ×2 (10:22→19:52)
[2022-10-12 14:00] VITALS: BP 134/62
[2022-10-12] MEDS: RIVAROXABAN 15MG TAB (XARELTO) PO SCH (17:01)
[2022-10-12] MEDS: traZODone 25MG PER 1/2 TABLET PO SCH (19:53)
[2022-10-12] MEDS: ATORVASTATIN 20 MG TAB PO SCH (19:54)
[2022-10-12 20:00] VITALS: BP 117/56
[2022-10-12] MEDS: LINEZOLID 600MG TABLET (ZYVOX) PO SCH (23:32)
[2022-10-13 06:00] VITALS: BP 131/60
[2022-10-13 06:11] LABS: BASO % 0.4 % (0.0-1.0); EOS # 0.2 10^3/uL (0.0-0.5); EOS % 2.7 % (0.0-3.0); HEMOGLOBIN 11.8 g/dl (12.0-15.5); LYMPH # 1.5 10^3/uL (1.5-5.0); LYMPH % 27.9 % (24.0-44.0); MEAN CORPUSCULAR HEMOGLOBIN 30.6 pg (27.0-33.0); MEAN CORPUSCULAR HGB CONC 31.9 g/dl (32.0-36.5); MEAN CORPUSCULAR VOLUME 96.1 fl (80.0-96.0); MONO # 0.5 10^3/uL (0.0-0.8); MONO % 9.8 % (2.0-8.0); NEUTROPHILS # 3.2 10^3/uL (1.5-8.5); NEUTROPHILS % 58.8 % (36.0-66.0); PLATELET COUNT, AUTOMATED 240 10^3/uL (150-450); RED BLOOD COUNT 3.85 10^6/uL (4.00-5.40); WHITE BLOOD COUNT 5.5 10^3/uL (4.0-10.0)
[2022-10-13 06:42] LABS: BLOOD UREA NITROGEN 11 MG/DL (9-23); CALCIUM LEVEL 8.9 MG/DL (8.3-10.6); CARBON DIOXIDE LEVEL 31 MMOL/L (20-31); CHLORIDE LEVEL 103 MMOL/L (98-107); CREATININE FOR GFR 0.73 MG/DL (0.55-1.30); GLOMERULAR FILTRATION RATE > 60.0 (>32); GLUCOSE, FASTING 141 MG/DL (74-106); POTASSIUM SERUM 4.1 MMOL/L (3.5-5.1); SODIUM LEVEL 140 MMOL/L (136-145)
[2022-10-13] MEDS: COMBIVENT RESPIMAT 100-20MCG INHALER 4GM INH SCH ×3 (07:21→20:02)
[2022-10-13] MEDS: LINEZOLID 600MG TABLET (ZYVOX) PO SCH ×2 (07:34→20:17)
[2022-10-13] MEDS: DICLOFENAC EPOLAMINE 1.3% PATCH TOP SCH ×2 (07:34→20:16)
[2022-10-13] MEDS: PANTOPRAZOLE 40MG TAB (PROTONIX) PO SCH (07:34)
[2022-10-13] MEDS: DOCUSATE SODIUM 100MG CAPSULE PO PRN ×2 (07:34→20:17)
[2022-10-13] MEDS: FUROSEMIDE 20 MG TAB PO SCH (07:35)
[2022-10-13] MEDS: CARVedilol 3.125 MG TAB PO SCH ×2 (07:35→20:19)
[2022-10-13] MEDS: REMEDY PHYTOPLEX Z-GUARD PASTE 113GM TUBE (FROM STOREROOM PRODUCT) TOP SCH ×3 (07:36→20:19)
[2022-10-13 13:57] VITALS: BP 136/63
[2022-10-13] MEDS: RIVAROXABAN 15MG TAB (XARELTO) PO SCH (17:41)
[2022-10-13 20:00] VITALS: BP 143/66
[2022-10-13] MEDS: ATORVASTATIN 20 MG TAB PO SCH (20:17)
[2022-10-13] MEDS: traZODone 25MG PER 1/2 TABLET PO SCH (20:17)
[2022-10-14 06:00] VITALS: BP 110/55
[2022-10-14] MEDS: COMBIVENT RESPIMAT 100-20MCG INHALER 4GM INH SCH ×3 (07:18→19:39)
[2022-10-14] MEDS: CARVedilol 3.125 MG TAB PO SCH ×2 (08:29→20:46)
[2022-10-14] MEDS: PANTOPRAZOLE 40MG TAB (PROTONIX) PO SCH (08:29)
[2022-10-14] MEDS: LINEZOLID 600MG TABLET (ZYVOX) PO SCH ×2 (08:29→20:46)
[2022-10-14] MEDS: REMEDY PHYTOPLEX Z-GUARD PASTE 113GM TUBE (FROM STOREROOM PRODUCT) TOP SCH ×3 (08:30→20:47)
[2022-10-14] MEDS: FUROSEMIDE 20 MG TAB PO SCH (08:30)
[2022-10-14] MEDS: DICLOFENAC EPOLAMINE 1.3% PATCH TOP SCH ×2 (08:30→20:47)
[2022-10-14 14:00] VITALS: BP 123/60
[2022-10-14] MEDS: ACETAMINOPHEN TAB 650MG DOSE (2X325MG) PO PRN (14:37)
[2022-10-14] MEDS: RIVAROXABAN 15MG TAB (XARELTO) PO SCH (17:04)
[2022-10-14 20:19] VITALS: BP 121/56
[2022-10-14] MEDS: DOCUSATE SODIUM 100MG CAPSULE PO PRN (20:45)
[2022-10-14] MEDS: traZODone 25MG PER 1/2 TABLET PO SCH (20:46)
[2022-10-14] MEDS: IBUPROFEN 400MG TAB PO PRN (20:46)
[2022-10-14] MEDS: ATORVASTATIN 20 MG TAB PO SCH (20:46)
[2022-10-15 06:13] VITALS: BP 122/57
[2022-10-15 06:24] LABS: BASO % 0.3 % (0.0-1.0); EOS # 0.2 10^3/uL (0.0-0.5); EOS % 2.8 % (0.0-3.0); HEMATOCRIT 39.8 % (36.0-47.0); HEMOGLOBIN 12.3 g/dl (12.0-15.5); LYMPH # 1.5 10^3/uL (1.5-5.0); LYMPH % 26.7 % (24.0-44.0); MEAN CORPUSCULAR HEMOGLOBIN 30.1 pg (27.0-33.0); MEAN CORPUSCULAR HGB CONC 30.9 g/dl (32.0-36.5); MEAN CORPUSCULAR VOLUME 97.3 fl (80.0-96.0); MONO # 0.6 10^3/uL (0.0-0.8); MONO % 9.9 % (2.0-8.0); NEUTROPHILS # 3.4 10^3/uL (1.5-8.5); PLATELET COUNT, AUTOMATED 231 10^3/uL (150-450); RED BLOOD COUNT 4.09 10^6/uL (4.00-5.40); WHITE BLOOD COUNT 5.7 10^3/uL (4.0-10.0)
[2022-10-15 06:46] LABS: BLOOD UREA NITROGEN 14 MG/DL (9-23); CALCIUM LEVEL 9.1 MG/DL (8.3-10.6); CARBON DIOXIDE LEVEL 32 MMOL/L (20-31); CHLORIDE LEVEL 104 MMOL/L (98-107); CREATININE FOR GFR 0.86 MG/DL (0.55-1.30); GLOMERULAR FILTRATION RATE > 60.0 (>32); GLUCOSE, FASTING 138 MG/DL (74-106); POTASSIUM SERUM 4.5 MMOL/L (3.5-5.1); SODIUM LEVEL 143 MMOL/L (136-145)
[2022-10-15] MEDS: COMBIVENT RESPIMAT 100-20MCG INHALER 4GM INH SCH ×3 (07:18→21:18)
[2022-10-15] MEDS: LINEZOLID 600MG TABLET (ZYVOX) PO SCH (08:18)
[2022-10-15] MEDS: FUROSEMIDE 20 MG TAB PO SCH (08:19)
[2022-10-15] MEDS: REMEDY PHYTOPLEX Z-GUARD PASTE 113GM TUBE (FROM STOREROOM PRODUCT) TOP SCH ×3 (08:19→20:40)
[2022-10-15] MEDS: PANTOPRAZOLE 40MG TAB (PROTONIX) PO SCH (08:19)
[2022-10-15] MEDS: CARVedilol 3.125 MG TAB PO SCH ×2 (08:19→20:40)
[2022-10-15] MEDS: DICLOFENAC EPOLAMINE 1.3% PATCH TOP SCH ×2 (08:19→20:39)
[2022-10-15] MEDS: FLUoxetine 10 MG CAP PO SCH (11:35)
[2022-10-15 14:00] VITALS: BP 129/58
[2022-10-15] MEDS ORDERED: oxyCODONE 5MG TAB PO PRN (16:10)
[2022-10-15] MEDS ORDERED: PILL CUTTER 1 EACH XX PRN (16:15)
[2022-10-15] MEDS: RIVAROXABAN 15MG TAB (XARELTO) PO SCH (17:04)
[2022-10-15] MEDS: GABAPENTIN 100 MG CAP PO SCH ×2 (17:04→20:40)
[2022-10-15] MEDS: IBUPROFEN 400MG TAB PO PRN (17:04)
[2022-10-15 20:00] VITALS: BP 135/60
[2022-10-15] MEDS: traZODone 25MG PER 1/2 TABLET PO SCH (20:40)
[2022-10-15] MEDS: ACETAMINOPHEN 650MG ER TAB (TYLENOL ARTHRITIS) PO SCH (20:40)
[2022-10-15] MEDS: ATORVASTATIN 20 MG TAB PO SCH (20:40)
[2022-10-16 06:00] VITALS: BP 135/74
[2022-10-16] MEDS: COMBIVENT RESPIMAT 100-20MCG INHALER 4GM INH SCH ×3 (07:32→19:57)
[2022-10-16] MEDS: REMEDY PHYTOPLEX Z-GUARD PASTE 113GM TUBE (FROM STOREROOM PRODUCT) TOP SCH ×3 (09:00→21:00)
[2022-10-16] MEDS: FUROSEMIDE 20 MG TAB PO SCH (09:29)
[2022-10-16] MEDS: PANTOPRAZOLE 40MG TAB (PROTONIX) PO SCH (09:29)
[2022-10-16] MEDS: FLUoxetine 10 MG CAP PO SCH (09:29)
[2022-10-16] MEDS: GABAPENTIN 100 MG CAP PO SCH ×3 (09:29→21:02)
[2022-10-16] MEDS: ACETAMINOPHEN 650MG ER TAB (TYLENOL ARTHRITIS) PO SCH ×3 (09:30→21:02)
[2022-10-16] MEDS: CARVedilol 3.125 MG TAB PO SCH ×2 (09:30→21:02)
[2022-10-16] MEDS: DICLOFENAC EPOLAMINE 1.3% PATCH TOP SCH ×2 (09:31→21:01)
[2022-10-16 14:00] VITALS: BP 115/56
[2022-10-16] MEDS: RIVAROXABAN 15MG TAB (XARELTO) PO SCH (17:22)
[2022-10-16 20:00] VITALS: BP 135/62
[2022-10-16] MEDS: ATORVASTATIN 20 MG TAB PO SCH (21:02)
[2022-10-16] MEDS: traZODone 25MG PER 1/2 TABLET PO SCH (21:02)
[2022-10-17 06:00] VITALS: BP 159/72
[2022-10-17] MEDS: COMBIVENT RESPIMAT 100-20MCG INHALER 4GM INH SCH ×3 (07:59→20:08)
[2022-10-17] MEDS: FLUoxetine 10 MG CAP PO SCH (08:33)
[2022-10-17] MEDS: FUROSEMIDE 20 MG TAB PO SCH (08:33)
[2022-10-17] MEDS: PANTOPRAZOLE 40MG TAB (PROTONIX) PO SCH (08:33)
[2022-10-17] MEDS: GABAPENTIN 100 MG CAP PO SCH ×3 (08:33→20:16)
[2022-10-17] MEDS: CARVedilol 3.125 MG TAB PO SCH ×2 (08:34→20:17)
[2022-10-17] MEDS: REMEDY PHYTOPLEX Z-GUARD PASTE 113GM TUBE (FROM STOREROOM PRODUCT) TOP SCH ×3 (08:34→20:17)
[2022-10-17] MEDS: DICLOFENAC EPOLAMINE 1.3% PATCH TOP SCH ×3 (08:35→20:20)
[2022-10-17] MEDS: ACETAMINOPHEN 650MG ER TAB (TYLENOL ARTHRITIS) PO SCH ×3 (08:35→20:16)
[2022-10-17 09:25] LABS: BASO % 0.3 % (0.0-1.0); EOS # 0.2 10^3/uL (0.0-0.5); HEMATOCRIT 40.3 % (36.0-47.0); HEMOGLOBIN 12.6 g/dl (12.0-15.5); LYMPH # 1.1 10^3/uL (1.5-5.0); LYMPH % 13.7 % (24.0-44.0); MEAN CORPUSCULAR HEMOGLOBIN 30.5 pg (27.0-33.0); MEAN CORPUSCULAR HGB CONC 31.3 g/dl (32.0-36.5); MEAN CORPUSCULAR VOLUME 97.6 fl (80.0-96.0); MONO # 0.6 10^3/uL (0.0-0.8); MONO % 7.5 % (2.0-8.0); PLATELET COUNT, AUTOMATED 222 10^3/uL (150-450); RED BLOOD COUNT 4.13 10^6/uL (4.00-5.40); WHITE BLOOD COUNT 7.9 10^3/uL (4.0-10.0)
[2022-10-17 09:48] LABS: BLOOD UREA NITROGEN 13 MG/DL (9-23); CALCIUM LEVEL 8.6 MG/DL (8.3-10.6); CARBON DIOXIDE LEVEL 32 MMOL/L (20-31); CHLORIDE LEVEL 105 MMOL/L (98-107); CREATININE FOR GFR 0.66 MG/DL (0.55-1.30); GLOMERULAR FILTRATION RATE > 60.0 (>32); GLUCOSE, FASTING 207 MG/DL (74-106); POTASSIUM SERUM 4.1 MMOL/L (3.5-5.1); SODIUM LEVEL 143 MMOL/L (136-145)
[2022-10-17] MEDS: IBUPROFEN 400MG TAB PO PRN (12:29)
[2022-10-17 14:00] VITALS: BP_SYST 118; BP_DIAS 68; BP_DIAS 8
[2022-10-17] MEDS: RIVAROXABAN 15MG TAB (XARELTO) PO SCH (17:26)
[2022-10-17 19:59] VITALS: BP 141/63
[2022-10-17] MEDS: ATORVASTATIN 20 MG TAB PO SCH (20:16)
[2022-10-17] MEDS: traZODone 25MG PER 1/2 TABLET PO SCH (20:17)
[2022-10-18 05:59] VITALS: BP 123/59
[2022-10-18] MEDS: COMBIVENT RESPIMAT 100-20MCG INHALER 4GM INH SCH ×3 (07:06→20:24)
[2022-10-18] MEDS: PANTOPRAZOLE 40MG TAB (PROTONIX) PO SCH (07:38)
[2022-10-18] MEDS: ACETAMINOPHEN 650MG ER TAB (TYLENOL ARTHRITIS) PO SCH ×3 (07:38→20:57)
[2022-10-18] MEDS: GABAPENTIN 100 MG CAP PO SCH ×3 (07:38→20:57)
[2022-10-18] MEDS: FLUoxetine 10 MG CAP PO SCH (07:39)
[2022-10-18] MEDS: FUROSEMIDE 20 MG TAB PO SCH (07:39)
[2022-10-18] MEDS: DICLOFENAC EPOLAMINE 1.3% PATCH TOP SCH ×2 (07:40→21:00)
[2022-10-18] MEDS: REMEDY PHYTOPLEX Z-GUARD PASTE 113GM TUBE (FROM STOREROOM PRODUCT) TOP SCH ×3 (07:40→21:00)
[2022-10-18] MEDS: CARVedilol 3.125 MG TAB PO SCH ×2 (07:40→20:58)
[2022-10-18 14:00] VITALS: BP 130/68
[2022-10-18] MEDS: RIVAROXABAN 15MG TAB (XARELTO) PO SCH (17:14)
[2022-10-18 20:00] VITALS: BP 145/70
[2022-10-18] MEDS: ATORVASTATIN 20 MG TAB PO SCH (20:57)
[2022-10-18] MEDS: traZODone 25MG PER 1/2 TABLET PO SCH (20:58)
[2022-10-19 06:00] VITALS: BP 129/61
[2022-10-19] MEDS: ACETAMINOPHEN 650MG ER TAB (TYLENOL ARTHRITIS) PO SCH ×3 (07:48→20:40)
[2022-10-19] MEDS: FUROSEMIDE 20 MG TAB PO SCH (07:49)
[2022-10-19] MEDS: PANTOPRAZOLE 40MG TAB (PROTONIX) PO SCH (07:49)
[2022-10-19] MEDS: GABAPENTIN 100 MG CAP PO SCH ×3 (07:49→20:40)
[2022-10-19] MEDS: CARVedilol 3.125 MG TAB PO SCH ×2 (07:49→20:41)
[2022-10-19] MEDS: FLUoxetine 10 MG CAP PO SCH (07:49)
[2022-10-19] MEDS: DICLOFENAC EPOLAMINE 1.3% PATCH TOP SCH ×2 (07:50→21:00)
[2022-10-19] MEDS: REMEDY PHYTOPLEX Z-GUARD PASTE 113GM TUBE (FROM STOREROOM PRODUCT) TOP SCH ×3 (07:50→21:00)
[2022-10-19] MEDS: COMBIVENT RESPIMAT 100-20MCG INHALER 4GM INH SCH ×3 (13:35→20:00)
[2022-10-19 14:00] VITALS: BP 132/69
[2022-10-19] MEDS: RIVAROXABAN 15MG TAB (XARELTO) PO SCH (16:56)
[2022-10-19 20:00] VITALS: BP 127/84
[2022-10-19] MEDS: traZODone 25MG PER 1/2 TABLET PO SCH (20:40)
[2022-10-19] MEDS: ATORVASTATIN 20 MG TAB PO SCH (20:40)
[2022-10-20 06:00] VITALS: BP_SYST 120; BP_SYST 127; BP_DIAS 70; BP_DIAS 84
[2022-10-20 06:00] LABS: BASO % 0.4 % (0.0-1.0); EOS # 0.2 10^3/uL (0.0-0.5); EOS % 4.9 % (0.0-3.0); HEMATOCRIT 37.1 % (36.0-47.0); HEMOGLOBIN 11.6 g/dl (12.0-15.5); LYMPH # 1.7 10^3/uL (1.5-5.0); LYMPH % 35.2 % (24.0-44.0); MEAN CORPUSCULAR HEMOGLOBIN 30.5 pg (27.0-33.0); MEAN CORPUSCULAR HGB CONC 31.3 g/dl (32.0-36.5); MEAN CORPUSCULAR VOLUME 97.6 fl (80.0-96.0); MONO # 0.5 10^3/uL (0.0-0.8); NEUTROPHILS # 2.4 10^3/uL (1.5-8.5); NEUTROPHILS % 49.3 % (36.0-66.0); PLATELET COUNT, AUTOMATED 179 10^3/uL (150-450); WHITE BLOOD COUNT 4.9 10^3/uL (4.0-10.0)
[2022-10-20 06:27] LABS: BLOOD UREA NITROGEN 12 MG/DL (9-23); CALCIUM LEVEL 8.9 MG/DL (8.3-10.6); CARBON DIOXIDE LEVEL 31 MMOL/L (20-31); CHLORIDE LEVEL 108 MMOL/L (98-107); CREATININE FOR GFR 0.71 MG/DL (0.55-1.30); GLOMERULAR FILTRATION RATE > 60.0 (>32); GLUCOSE, FASTING 118 MG/DL (74-106); POTASSIUM SERUM 4.3 MMOL/L (3.5-5.1); SODIUM LEVEL 144 MMOL/L (136-145)
[2022-10-20] MEDS: COMBIVENT RESPIMAT 100-20MCG INHALER 4GM INH SCH ×3 (08:13→19:56)
[2022-10-20] MEDS: REMEDY PHYTOPLEX Z-GUARD PASTE 113GM TUBE (FROM STOREROOM PRODUCT) TOP SCH ×3 (09:00→21:00)
[2022-10-20] MEDS: DICLOFENAC EPOLAMINE 1.3% PATCH TOP SCH ×3 (09:00→21:28)
[2022-10-20] MEDS: PANTOPRAZOLE 40MG TAB (PROTONIX) PO SCH (09:20)
[2022-10-20] MEDS: FLUoxetine 10 MG CAP PO SCH (09:20)
[2022-10-20] MEDS: CARVedilol 3.125 MG TAB PO SCH ×2 (09:20→21:28)
[2022-10-20] MEDS: GABAPENTIN 100 MG CAP PO SCH ×3 (09:20→21:28)
[2022-10-20] MEDS: FUROSEMIDE 20 MG TAB PO SCH (09:20)
[2022-10-20] MEDS: ACETAMINOPHEN 650MG ER TAB (TYLENOL ARTHRITIS) PO SCH ×3 (09:21→21:29)
[2022-10-20 14:00] VITALS: BP_SYST 121; BP_SYST 148; BP_DIAS 58; BP_DIAS 67
[2022-10-20] MEDS: RIVAROXABAN 15MG TAB (XARELTO) PO SCH (17:27)
[2022-10-20 20:00] VITALS: BP 132/61
[2022-10-20] MEDS: traZODone 25MG PER 1/2 TABLET PO SCH (21:28)
[2022-10-20] MEDS: ATORVASTATIN 20 MG TAB PO SCH (21:29)
[2022-10-21 06:00] VITALS: BP 132/61
[2022-10-21] MEDS: CARVedilol 3.125 MG TAB PO SCH ×2 (07:43→21:10)
[2022-10-21] MEDS: ACETAMINOPHEN 650MG ER TAB (TYLENOL ARTHRITIS) PO SCH ×3 (07:43→21:08)
[2022-10-21] MEDS: FUROSEMIDE 20 MG TAB PO SCH (07:43)
[2022-10-21] MEDS: PANTOPRAZOLE 40MG TAB (PROTONIX) PO SCH (07:43)
[2022-10-21] MEDS: GABAPENTIN 100 MG CAP PO SCH ×3 (07:43→21:08)
[2022-10-21] MEDS: FLUoxetine 10 MG CAP PO SCH (07:43)
[2022-10-21] MEDS: DICLOFENAC EPOLAMINE 1.3% PATCH TOP SCH ×2 (07:44→21:00)
[2022-10-21] MEDS: REMEDY PHYTOPLEX Z-GUARD PASTE 113GM TUBE (FROM STOREROOM PRODUCT) TOP SCH ×3 (07:44→21:00)
[2022-10-21] MEDS: COMBIVENT RESPIMAT 100-20MCG INHALER 4GM INH SCH ×3 (08:12→20:08)
[2022-10-21 14:00] VITALS: BP 145/72
[2022-10-21] MEDS: RIVAROXABAN 15MG TAB (XARELTO) PO SCH (17:28)
[2022-10-21 20:00] VITALS: BP 135/63
[2022-10-21] MEDS: traZODone 25MG PER 1/2 TABLET PO SCH (21:08)
[2022-10-21] MEDS: ATORVASTATIN 20 MG TAB PO SCH (21:10)
[2022-10-22 06:00] VITALS: BP 111/57
[2022-10-22 06:56] LABS: BASO % 0.4 % (0.0-1.0); EOS # 0.2 10^3/uL (0.0-0.5); HEMATOCRIT 39.3 % (36.0-47.0); HEMOGLOBIN 12.3 g/dl (12.0-15.5); LYMPH # 1.4 10^3/uL (1.5-5.0); LYMPH % 30.5 % (24.0-44.0); MEAN CORPUSCULAR HEMOGLOBIN 30.3 pg (27.0-33.0); MEAN CORPUSCULAR HGB CONC 31.3 g/dl (32.0-36.5); MEAN CORPUSCULAR VOLUME 96.8 fl (80.0-96.0); MONO # 0.5 10^3/uL (0.0-0.8); MONO % 10.3 % (2.0-8.0); NEUTROPHILS # 2.4 10^3/uL (1.5-8.5); NEUTROPHILS % 54.4 % (36.0-66.0); PLATELET COUNT, AUTOMATED 182 10^3/uL (150-450); RED BLOOD COUNT 4.06 10^6/uL (4.00-5.40); WHITE BLOOD COUNT 4.5 10^3/uL (4.0-10.0)
[2022-10-22 07:21] LABS: BLOOD UREA NITROGEN 10 MG/DL (9-23); CALCIUM LEVEL 8.9 MG/DL (8.3-10.6); CARBON DIOXIDE LEVEL 31 MMOL/L (20-31); CHLORIDE LEVEL 107 MMOL/L (98-107); CREATININE FOR GFR 0.72 MG/DL (0.55-1.30); GLOMERULAR FILTRATION RATE > 60.0 (>32); GLUCOSE, FASTING 126 MG/DL (74-106); POTASSIUM SERUM 4.2 MMOL/L (3.5-5.1); SODIUM LEVEL 143 MMOL/L (136-145)
[2022-10-22] MEDS: COMBIVENT RESPIMAT 100-20MCG INHALER 4GM INH SCH ×3 (07:45→20:31)
[2022-10-22] MEDS: PANTOPRAZOLE 40MG TAB (PROTONIX) PO SCH (08:15)
[2022-10-22] MEDS: FLUoxetine 10 MG CAP PO SCH (08:15)
[2022-10-22] MEDS: CARVedilol 3.125 MG TAB PO SCH ×2 (08:15→20:23)
[2022-10-22] MEDS: GABAPENTIN 100 MG CAP PO SCH ×3 (08:15→20:22)
[2022-10-22] MEDS: FUROSEMIDE 20 MG TAB PO SCH (08:15)
[2022-10-22] MEDS: REMEDY PHYTOPLEX Z-GUARD PASTE 113GM TUBE (FROM STOREROOM PRODUCT) TOP SCH ×3 (08:16→20:24)
[2022-10-22] MEDS: ACETAMINOPHEN 650MG ER TAB (TYLENOL ARTHRITIS) PO SCH ×3 (08:16→20:22)
[2022-10-22] MEDS: DICLOFENAC EPOLAMINE 1.3% PATCH TOP SCH ×2 (08:16→20:24)
[2022-10-22 14:00] VITALS: BP 128/60
[2022-10-22] MEDS: RIVAROXABAN 15MG TAB (XARELTO) PO SCH (17:14)
[2022-10-22] MEDS: ATORVASTATIN 20 MG TAB PO SCH (20:22)
[2022-10-22] MEDS: traZODone 25MG PER 1/2 TABLET PO SCH (20:22)
[2022-10-22 23:26] VITALS: BP 141/54
[2022-10-23 05:39] VITALS: BP 148/68
[2022-10-23] MEDS: ACETAMINOPHEN 650MG ER TAB (TYLENOL ARTHRITIS) PO SCH ×3 (07:00→20:22)
[2022-10-23] MEDS: COMBIVENT RESPIMAT 100-20MCG INHALER 4GM INH SCH ×3 (07:26→20:10)
[2022-10-23] MEDS: REMEDY PHYTOPLEX Z-GUARD PASTE 113GM TUBE (FROM STOREROOM PRODUCT) TOP SCH ×3 (09:00→20:23)
[2022-10-23] MEDS ORDERED: FUROSEMIDE 20 MG TAB PO SCH (09:00)
[2022-10-23] MEDS: DICLOFENAC EPOLAMINE 1.3% PATCH TOP SCH ×2 (09:00→20:23)
[2022-10-23] MEDS: FLUoxetine 10 MG CAP PO SCH (09:13)
[2022-10-23] MEDS: GABAPENTIN 100 MG CAP PO SCH ×3 (09:13→20:23)
[2022-10-23] MEDS: PANTOPRAZOLE 40MG TAB (PROTONIX) PO SCH (09:13)
[2022-10-23] MEDS: CARVedilol 3.125 MG TAB PO SCH ×2 (09:14→20:22)
[2022-10-23 14:00] VITALS: BP 140/69
[2022-10-23] MEDS: RIVAROXABAN 15MG TAB (XARELTO) PO SCH (17:10)
[2022-10-23 20:02] VITALS: BP 122/60
[2022-10-23] MEDS: ATORVASTATIN 20 MG TAB PO SCH (20:22)
[2022-10-23] MEDS: traZODone 25MG PER 1/2 TABLET PO SCH (20:22)
[2022-10-24 05:29] VITALS: BP 132/60
[2022-10-24 06:11] LABS: BASO % 0.4 % (0.0-1.0); EOS # 0.2 10^3/uL (0.0-0.5); HEMATOCRIT 38.9 % (36.0-47.0); HEMOGLOBIN 12.3 g/dl (12.0-15.5); LYMPH # 1.4 10^3/uL (1.5-5.0); LYMPH % 28.1 % (24.0-44.0); MEAN CORPUSCULAR HEMOGLOBIN 30.6 pg (27.0-33.0); MEAN CORPUSCULAR HGB CONC 31.6 g/dl (32.0-36.5); MEAN CORPUSCULAR VOLUME 96.8 fl (80.0-96.0); MONO # 0.6 10^3/uL (0.0-0.8); MONO % 11.8 % (2.0-8.0); NEUTROPHILS # 2.8 10^3/uL (1.5-8.5); NEUTROPHILS % 56.5 % (36.0-66.0); PLATELET COUNT, AUTOMATED 184 10^3/uL (150-450); RED BLOOD COUNT 4.02 10^6/uL (4.00-5.40)
[2022-10-24 06:40] LABS: BLOOD UREA NITROGEN 13 MG/DL (9-23); CALCIUM LEVEL 8.7 MG/DL (8.3-10.6); CARBON DIOXIDE LEVEL 30 MMOL/L (20-31); CHLORIDE LEVEL 108 MMOL/L (98-107); CREATININE FOR GFR 0.59 MG/DL (0.55-1.30); GLOMERULAR FILTRATION RATE > 60.0 (>32); GLUCOSE, FASTING 126 MG/DL (74-106); POTASSIUM SERUM 4.2 MMOL/L (3.5-5.1); SODIUM LEVEL 144 MMOL/L (136-145)
[2022-10-24] MEDS: COMBIVENT RESPIMAT 100-20MCG INHALER 4GM INH SCH ×3 (07:19→19:12)
[2022-10-24] MEDS: REMEDY PHYTOPLEX Z-GUARD PASTE 113GM TUBE (FROM STOREROOM PRODUCT) TOP SCH ×3 (08:37→21:00)
[2022-10-24] MEDS: DICLOFENAC EPOLAMINE 1.3% PATCH TOP SCH ×2 (08:37→21:00)
[2022-10-24] MEDS: GABAPENTIN 100 MG CAP PO SCH ×3 (09:02→21:06)
[2022-10-24] MEDS: FLUoxetine 10 MG CAP PO SCH (09:02)
[2022-10-24] MEDS: PANTOPRAZOLE 40MG TAB (PROTONIX) PO SCH (09:02)
[2022-10-24] MEDS: CARVedilol 3.125 MG TAB PO SCH ×2 (09:03→21:06)
[2022-10-24] MEDS: FUROSEMIDE 40 MG TAB PO SCH (09:03)
[2022-10-24] MEDS: ACETAMINOPHEN 650MG ER TAB (TYLENOL ARTHRITIS) PO SCH ×3 (09:03→21:06)
[2022-10-24 14:00] VITALS: BP 134/57
[2022-10-24] MEDS: RIVAROXABAN 15MG TAB (XARELTO) PO SCH (17:12)
[2022-10-24 19:21] VITALS: BP 138/72
[2022-10-24] MEDS: traZODone 25MG PER 1/2 TABLET PO SCH (21:06)
[2022-10-24] MEDS: ATORVASTATIN 20 MG TAB PO SCH (21:07)
[2022-10-25 06:00] VITALS: BP 126/60
[2022-10-25] MEDS: COMBIVENT RESPIMAT 100-20MCG INHALER 4GM INH SCH ×3 (07:17→19:43)
[2022-10-25] MEDS: PANTOPRAZOLE 40MG TAB (PROTONIX) PO SCH (08:11)
[2022-10-25] MEDS: FLUoxetine 10 MG CAP PO SCH (08:11)
[2022-10-25] MEDS: FUROSEMIDE 40 MG TAB PO SCH (08:11)
[2022-10-25] MEDS: CARVedilol 3.125 MG TAB PO SCH ×2 (08:11→19:36)
[2022-10-25] MEDS: ACETAMINOPHEN 650MG ER TAB (TYLENOL ARTHRITIS) PO SCH ×3 (08:12→19:35)
[2022-10-25] MEDS: GABAPENTIN 100 MG CAP PO SCH ×3 (08:12→19:36)
[2022-10-25] MEDS: REMEDY PHYTOPLEX Z-GUARD PASTE 113GM TUBE (FROM STOREROOM PRODUCT) TOP SCH ×3 (08:13→19:37)
[2022-10-25] MEDS: DICLOFENAC EPOLAMINE 1.3% PATCH TOP SCH ×2 (08:14→19:37)
[2022-10-25 14:00] VITALS: BP 152/66
[2022-10-25] MEDS: RIVAROXABAN 15MG TAB (XARELTO) PO SCH (17:16)
[2022-10-25] MEDS: traZODone 25MG PER 1/2 TABLET PO SCH (19:35)
[2022-10-25] MEDS: ATORVASTATIN 20 MG TAB PO SCH (19:36)
[2022-10-25 20:00] VITALS: BP 144/67
[2022-10-26 06:00] VITALS: BP 140/80
[2022-10-26] MEDS: COMBIVENT RESPIMAT 100-20MCG INHALER 4GM INH SCH ×3 (07:21→20:00)
[2022-10-26] MEDS: ACETAMINOPHEN 650MG ER TAB (TYLENOL ARTHRITIS) PO SCH ×3 (08:38→20:16)
[2022-10-26] MEDS: GABAPENTIN 100 MG CAP PO SCH ×3 (08:39→20:17)
[2022-10-26] MEDS: FLUoxetine 10 MG CAP PO SCH (08:39)
[2022-10-26] MEDS: PANTOPRAZOLE 40MG TAB (PROTONIX) PO SCH (08:39)
[2022-10-26] MEDS: FUROSEMIDE 40 MG TAB PO SCH (08:39)
[2022-10-26] MEDS: CARVedilol 3.125 MG TAB PO SCH ×2 (08:42→20:17)
[2022-10-26] MEDS: DOCUSATE SODIUM 100MG CAPSULE PO PRN (08:45)
[2022-10-26] MEDS: REMEDY PHYTOPLEX Z-GUARD PASTE 113GM TUBE (FROM STOREROOM PRODUCT) TOP SCH ×3 (08:46→20:17)
[2022-10-26] MEDS: DICLOFENAC EPOLAMINE 1.3% PATCH TOP SCH ×2 (08:46→20:17)
[2022-10-26 14:00] VITALS: BP 124/62
[2022-10-26] MEDS: RIVAROXABAN 15MG TAB (XARELTO) PO SCH (16:42)
[2022-10-26 20:00] VITALS: BP 115/57
[2022-10-26] MEDS: traZODone 25MG PER 1/2 TABLET PO SCH (20:16)
[2022-10-26] MEDS: ATORVASTATIN 20 MG TAB PO SCH (20:16)
[2022-10-27 06:00] VITALS: BP 123/63
[2022-10-27 06:07] LABS: BASO % 0.2 % (0.0-1.0); EOS # 0.2 10^3/uL (0.0-0.5); EOS % 3.8 % (0.0-3.0); HEMATOCRIT 38.9 % (36.0-47.0); HEMOGLOBIN 12.3 g/dl (12.0-15.5); LYMPH # 1.7 10^3/uL (1.5-5.0); LYMPH % 32.3 % (24.0-44.0); MEAN CORPUSCULAR HEMOGLOBIN 30.7 pg (27.0-33.0); MEAN CORPUSCULAR HGB CONC 31.6 g/dl (32.0-36.5); MONO # 0.6 10^3/uL (0.0-0.8); MONO % 10.6 % (2.0-8.0); NEUTROPHILS # 2.8 10^3/uL (1.5-8.5); NEUTROPHILS % 52.9 % (36.0-66.0); PLATELET COUNT, AUTOMATED 191 10^3/uL (150-450); RED BLOOD COUNT 4.01 10^6/uL (4.00-5.40); WHITE BLOOD COUNT 5.3 10^3/uL (4.0-10.0)
[2022-10-27 06:35] LABS: BLOOD UREA NITROGEN 9 MG/DL (9-23); CALCIUM LEVEL 8.9 MG/DL (8.3-10.6); CARBON DIOXIDE LEVEL 33 MMOL/L (20-31); CHLORIDE LEVEL 104 MMOL/L (98-107); CREATININE FOR GFR 0.65 MG/DL (0.55-1.30); GLOMERULAR FILTRATION RATE > 60.0 (>32); GLUCOSE, FASTING 127 MG/DL (74-106); POTASSIUM SERUM 3.9 MMOL/L (3.5-5.1); SODIUM LEVEL 142 MMOL/L (136-145)
[2022-10-27] MEDS: COMBIVENT RESPIMAT 100-20MCG INHALER 4GM INH SCH ×3 (07:16→19:57)
[2022-10-27] MEDS: FLUoxetine 10 MG CAP PO SCH (08:49)
[2022-10-27] MEDS: ACETAMINOPHEN 650MG ER TAB (TYLENOL ARTHRITIS) PO SCH ×3 (08:49→20:54)
[2022-10-27] MEDS: GABAPENTIN 100 MG CAP PO SCH ×3 (08:49→20:54)
[2022-10-27] MEDS: PANTOPRAZOLE 40MG TAB (PROTONIX) PO SCH (08:49)
[2022-10-27] MEDS: CARVedilol 3.125 MG TAB PO SCH ×2 (08:50→20:53)
[2022-10-27] MEDS: REMEDY PHYTOPLEX Z-GUARD PASTE 113GM TUBE (FROM STOREROOM PRODUCT) TOP SCH ×3 (08:50→20:55)
[2022-10-27] MEDS: DICLOFENAC EPOLAMINE 1.3% PATCH TOP SCH ×2 (08:50→20:52)
[2022-10-27] MEDS: FUROSEMIDE 40 MG TAB PO SCH (08:50)
[2022-10-27 14:00] VITALS: BP 120/60
[2022-10-27] MEDS: RIVAROXABAN 15MG TAB (XARELTO) PO SCH (18:50)
[2022-10-27 20:00] VITALS: BP 122/56
[2022-10-27] MEDS: ATORVASTATIN 20 MG TAB PO SCH (20:53)
[2022-10-27] MEDS: traZODone 25MG PER 1/2 TABLET PO SCH (20:54)
[2022-10-28 06:00] VITALS: BP 132/63
[2022-10-28] MEDS: COMBIVENT RESPIMAT 100-20MCG INHALER 4GM INH SCH (07:16)
[2022-10-28] MEDS: DICLOFENAC EPOLAMINE 1.3% PATCH TOP SCH (08:17)
[2022-10-28] MEDS: ACETAMINOPHEN 650MG ER TAB (TYLENOL ARTHRITIS) PO SCH (08:17)
[2022-10-28] MEDS: GABAPENTIN 100 MG CAP PO SCH (08:17)
[2022-10-28 08:18] VITALS: BP 132/63
[2022-10-28] MEDS: REMEDY PHYTOPLEX Z-GUARD PASTE 113GM TUBE (FROM STOREROOM PRODUCT) TOP SCH (08:18)
[2022-10-28] MEDS: FLUoxetine 10 MG CAP PO SCH (08:18)
[2022-10-28] MEDS: FUROSEMIDE 40 MG TAB PO SCH (08:18)
[2022-10-28] MEDS: CARVedilol 3.125 MG TAB PO SCH (08:18)
[2022-10-28] MEDS: PANTOPRAZOLE 40MG TAB (PROTONIX) PO SCH (08:18)
[2022-10-28] MEDS ORDERED: GABA-1171 PO (09:17)
[2022-10-28] MEDS ORDERED: XARE15TA PO (09:17)
[2022-10-28] MEDS ORDERED: VENTAER INH (09:17)
[2022-10-28] MEDS ORDERED: ATOR40TA75 PO (09:17)
[2022-10-28] MEDS ORDERED: FURO40TA2 PO (09:17)
[2022-10-28] MEDS ORDERED: FLUO10CA18 PO (09:17)
[2022-10-28] MEDS ORDERED: TRAZ-252 PO (09:17)
== END 2022-10-28 12:10 | disposition home health service (06) | DRG 57 ==
LOC: M PM&R 13:40
PROVIDERS: ADMIT Physical Medicine & Rehabilitation; ATTEND Physical Medicine & Rehabilitation
DX: I69.351 Hemiplegia and hemiparesis following cerebral infarction affecting right dominant side (principal); N39.0 Urinary tract infection, site not specified; I48.91 Unspecified atrial fibrillation; I10 Essential (primary) hypertension; E11.9 Type 2 diabetes mellitus without complications; R26.89 Other abnormalities of gait and mobility; I69.391 Dysphagia following cerebral infarction; R13.10 Dysphagia, unspecified; E78.5 Hyperlipidemia, unspecified; R19.7 Diarrhea, unspecified; I69.09 Other sequelae of nontraumatic subarachnoid hemorrhage; Z79.84 Long term (current) use of oral hypoglycemic drugs; Z79.899 Other long term (current) drug therapy; R42 Dizziness and giddiness; G93.89 Other specified disorders of brain; R74.01 Elevation of levels of liver transaminase levels; R00.1 Bradycardia, unspecified; B96.20 Unspecified Escherichia coli [E. coli] as the cause of diseases classified elsewhere; M54.9 Dorsalgia, unspecified

== ENCOUNTER 2022-12-30 14:23 | Emergency (ER) | payer MEDICARE, MEDICAID ==
[~2022-12-30] VITALS: Ht 157.5 cm; Wt 70.7 kg
[~2022-12-30 14:23] MED LIST changes: +ACET-907 PO; +ASPI-404 PO; +ATOR40TA75 PO; +FLUO10CA18 PO; +FURO40TA2 PO; +GABA-1171 PO; +GLUC1KIT IM; +INSUHUMDS SC; +KAOP262S PO; +MM S100C PO; +ONDA4TAB6 PO; -ROSU20TA5; +ROSU20TA61; +TRAZ-252 PO; +XARE15TA PO; +[UNRECOGNIZED DRUG - CODE] PO
[2022-12-30 16:04] LABS: BASO % 0.3 % (0.0-1.0); EOS # 0.1 10^3/uL (0.0-0.5); EOS % 1.9 % (0.0-3.0); HEMOGLOBIN 13.5 g/dl (12.0-15.5); LYMPH % 31.6 % (24.0-44.0); MEAN CORPUSCULAR HEMOGLOBIN 30.3 pg (27.0-33.0); MEAN CORPUSCULAR HGB CONC 32.1 g/dl (32.0-36.5); MEAN CORPUSCULAR VOLUME 94.2 fl (80.0-96.0); MONO # 0.5 10^3/uL (0.0-0.8); MONO % 8.4 % (2.0-8.0); NEUTROPHILS # 3.6 10^3/uL (1.5-8.5); NEUTROPHILS % 57.6 % (36.0-66.0); PLATELET COUNT, AUTOMATED 226 10^3/uL (150-450); RED BLOOD COUNT 4.46 10^6/uL (4.00-5.40); WHITE BLOOD COUNT 6.3 10^3/uL (4.0-10.0)
[2022-12-30 16:35] LABS: LIPASE 36 U/L (12-53)
[2022-12-30 16:51] LABS: ALBUMIN 3.8 G/DL (3.2-5.2); ALKALINE PHOSPHATASE 78 U/L (46-116); ALT/SGPT 13 U/L (7.0-40); AST/SGOT 17 U/L (<34); BILIRUBIN,TOTAL 0.6 MG/DL (0.3-1.2); BLOOD UREA NITROGEN 11 MG/DL (9-23); CALCIUM LEVEL 8.7 MG/DL (8.3-10.6); CARBON DIOXIDE LEVEL 33 MMOL/L (20-31); CHLORIDE LEVEL 107 MMOL/L (98-107); CREATININE FOR GFR 0.59 MG/DL (0.55-1.30); GLOMERULAR FILTRATION RATE > 60.0 (>32); GLUCOSE, FASTING 105 MG/DL (74-106); SODIUM LEVEL 143 MMOL/L (136-145); TOTAL PROTEIN 6.5 G/DL (5.7-8.2)
[2022-12-30] MEDS ORDERED: CIPROFLOXACIN 500MG TABLET PO ONE (19:30)
[2022-12-30] MEDS ORDERED: CIPR-249 PO (19:32)
[2022-12-30 19:35] VITALS: BP 145/87; TEMP 97.8; O2SAT 99
[2023-01-01] MEDS ORDERED: AMOX500C PO (08:27)
== END 2022-12-30 19:41 | disposition home or self-care (01) ==
LOC: M ED 14:23
DX: N39.0 Urinary tract infection, site not specified (principal); E11.9 Type 2 diabetes mellitus without complications; I10 Essential (primary) hypertension; E78.5 Hyperlipidemia, unspecified; J44.9 Chronic obstructive pulmonary disease, unspecified; K21.9 Gastro-esophageal reflux disease without esophagitis; F32.A Depression, unspecified; Z86.73 Personal history of transient ischemic attack (TIA), and cerebral infarction without residual deficits; Z79.01 Long term (current) use of anticoagulants; Z79.51 Long term (current) use of inhaled steroids; Z79.899 Other long term (current) drug therapy

== ENCOUNTER 2023-01-26 08:09 | Observation (INO) | payer MEDICARE, MEDICAID ==
[~2023-01-26] VITALS: Ht 157.5 cm; Wt 70.3 kg
[~2023-01-26 08:09] MED LIST changes: +AMOX500C PO
[2023-01-26 09:36] LABS: BASO % 0.3 % (0.0-1.0); EOS # 0.1 10^3/uL (0.0-0.5); EOS % 0.9 % (0.0-3.0); HEMATOCRIT 41.9 % (36.0-47.0); HEMOGLOBIN 13.5 g/dl (12.0-15.5); LYMPH # 1.1 10^3/uL (1.5-5.0); LYMPH % 16.7 % (24.0-44.0); MEAN CORPUSCULAR HEMOGLOBIN 30.4 pg (27.0-33.0); MEAN CORPUSCULAR HGB CONC 32.2 g/dl (32.0-36.5); MEAN CORPUSCULAR VOLUME 94.4 fl (80.0-96.0); MONO # 0.5 10^3/uL (0.0-0.8); MONO % 7.8 % (2.0-8.0); NEUTROPHILS # 4.9 10^3/uL (1.5-8.5); PLATELET COUNT, AUTOMATED 199 10^3/uL (150-450); RED BLOOD COUNT 4.44 10^6/uL (4.00-5.40); WHITE BLOOD COUNT 6.6 10^3/uL (4.0-10.0)
[2023-01-26 09:38] LABS: INR 1.26; PROTHROMBIN TIME 16.1 SECONDS (12.5-14.5)
[2023-01-26 09:39] LABS: PARTIAL THROMBOPLASTIN TIME 26.1 SECONDS (24.8-34.2)
[2023-01-26 09:46] LABS: ALBUMIN 3.7 G/DL (3.2-5.2); ALKALINE PHOSPHATASE 74 U/L (46-116); ALT/SGPT 10 U/L (7.0-40); AST/SGOT 10 U/L (<34); BILIRUBIN,DIRECT 0.3 MG/DL (<0.4); BILIRUBIN,TOTAL 0.8 MG/DL (0.3-1.2); BLOOD UREA NITROGEN 13 MG/DL (9-23); CALCIUM LEVEL 8.9 MG/DL (8.3-10.6); CARBON DIOXIDE LEVEL 30 MMOL/L (20-31); CHLORIDE LEVEL 106 MMOL/L (98-107); CREATININE FOR GFR 0.64 MG/DL (0.55-1.30); GLOMERULAR FILTRATION RATE > 60.0 (>32); GLUCOSE, FASTING 127 MG/DL (74-106); POTASSIUM SERUM 3.9 MMOL/L (3.5-5.1); SODIUM LEVEL 144 MMOL/L (136-145); TOTAL PROTEIN 6.5 G/DL (5.7-8.2)
[2023-01-26] MEDS ORDERED: MED REC IN PROGRESS XX SCH (11:30)
[2023-01-26] MEDS ORDERED: GABA-1171 PO (14:11)
[2023-01-26] MEDS ORDERED: TRAZ-252 PO (14:11)
[2023-01-26] MEDS ORDERED: ATOR40TA75 PO (14:21)
[2023-01-26 14:22] VITALS: BP 149/62; TEMP 97; O2SAT 97
[2023-01-26] MEDS ORDERED: HOME MED LIST COMPLETE! XX SCH (14:35)
[2023-01-26] MEDS ORDERED: ALBUTEROL 90 MCG/ACT 8GM HFA INHALER INH PRN (14:45)
[2023-01-26] MEDS: FLUoxetine 10 MG CAP PO SCH (15:27)
[2023-01-26] MEDS: GABAPENTIN 100 MG CAP PO SCH (15:27)
[2023-01-26] MEDS: FUROSEMIDE 40 MG TAB PO SCH (15:27)
[2023-01-26 16:48] LABS: HEMOGLOBIN A1c 6.4 % (4.0-6.0)
[2023-01-26] MEDS: RIVAROXABAN 15MG TAB (XARELTO) PO SCH (18:06)
[2023-01-26 19:53] VITALS: BP 115/53; TEMP 97.9; O2SAT 96
[2023-01-26] MEDS: ATORVASTATIN 20 MG TAB PO SCH (20:01)
[2023-01-26] MEDS: ACETAMINOPHEN TAB 650MG DOSE (2X325MG) PO PRN (20:01)
[2023-01-26] MEDS: traZODone 50 MG TAB PO SCH (20:01)
[2023-01-27 04:00] VITALS: BP 122/61; TEMP 97.4; O2SAT 98
[2023-01-27 06:25] LABS: HEMATOCRIT 37.2 % (36.0-47.0); HEMOGLOBIN 11.9 g/dl (12.0-15.5); MEAN CORPUSCULAR HEMOGLOBIN 29.8 pg (27.0-33.0); PLATELET COUNT, AUTOMATED 178 10^3/uL (150-450); WHITE BLOOD COUNT 5.1 10^3/uL (4.0-10.0)
[2023-01-27] MEDS: FUROSEMIDE 40 MG TAB PO SCH (09:53)
[2023-01-27] MEDS: FLUoxetine 10 MG CAP PO SCH (09:53)
[2023-01-27] MEDS: GABAPENTIN 100 MG CAP PO SCH (09:53)
[2023-01-27 12:00] VITALS: BP 132/63; TEMP 97.5; O2SAT 95
[2023-01-27] MEDS: RIVAROXABAN 15MG TAB (XARELTO) PO SCH (17:24)
[2023-01-27 20:00] VITALS: BP 130/60; TEMP 98.5; O2SAT 95
[2023-01-27] MEDS: ATORVASTATIN 20 MG TAB PO SCH (21:10)
[2023-01-27] MEDS: traZODone 50 MG TAB PO SCH (21:10)
[2023-01-28 06:00] VITALS: BP 120/58; TEMP 98.4; O2SAT 93
[2023-01-28] MEDS: GABAPENTIN 100 MG CAP PO SCH (08:15)
[2023-01-28] MEDS: FUROSEMIDE 40 MG TAB PO SCH (08:16)
[2023-01-28] MEDS: FLUoxetine 10 MG CAP PO SCH (08:16)
[2023-01-28] MEDS: ACETAMINOPHEN TAB 650MG DOSE (2X325MG) PO PRN (08:16)
[2023-01-28] MEDS: RIVAROXABAN 15MG TAB (XARELTO) PO SCH (17:12)
[2023-01-28] MEDS: ATORVASTATIN 20 MG TAB PO SCH (19:28)
[2023-01-28] MEDS: traZODone 50 MG TAB PO SCH (19:28)
[2023-01-29 05:30] VITALS: BP 122/59; TEMP 97.9; O2SAT 93
[2023-01-29] MEDS: FLUoxetine 10 MG CAP PO SCH (08:29)
[2023-01-29] MEDS: GABAPENTIN 100 MG CAP PO SCH (08:29)
[2023-01-29] MEDS: FUROSEMIDE 40 MG TAB PO SCH (08:29)
[2023-01-29] MEDS: ACETAMINOPHEN TAB 650MG DOSE (2X325MG) PO PRN (12:39)
[2023-01-29] MEDS ORDERED: BISACODYL 10MG SUPP PR ONE (16:30)
[2023-01-29] MEDS: RIVAROXABAN 15MG TAB (XARELTO) PO SCH (17:05)
[2023-01-29] MEDS: ATORVASTATIN 20 MG TAB PO SCH (19:35)
[2023-01-29] MEDS: traZODone 50 MG TAB PO SCH (19:35)
[2023-01-30 06:00] VITALS: BP 131/61; TEMP 98.7; O2SAT 92
[2023-01-30] MEDS: FUROSEMIDE 40 MG TAB PO SCH (09:10)
[2023-01-30] MEDS: FLUoxetine 10 MG CAP PO SCH (09:10)
[2023-01-30] MEDS: GABAPENTIN 100 MG CAP PO SCH (09:10)
[2023-01-30] MEDS: ACETAMINOPHEN TAB 650MG DOSE (2X325MG) PO PRN ×2 (09:10→21:28)
[2023-01-30] MEDS: RIVAROXABAN 15MG TAB (XARELTO) PO SCH (18:28)
[2023-01-30] MEDS: traZODone 50 MG TAB PO SCH (21:27)
[2023-01-30] MEDS: ATORVASTATIN 20 MG TAB PO SCH (21:27)
[2023-01-31 05:29] VITALS: BP 131/62; TEMP 97.4; O2SAT 95
[2023-01-31] MEDS: FUROSEMIDE 40 MG TAB PO SCH (08:56)
[2023-01-31] MEDS: FLUoxetine 10 MG CAP PO SCH (08:56)
[2023-01-31] MEDS: GABAPENTIN 100 MG CAP PO SCH (08:56)
[2023-01-31] MEDS: ACETAMINOPHEN TAB 650MG DOSE (2X325MG) PO PRN ×2 (12:10→20:30)
[2023-01-31] MEDS: MIRALAX *UNIT DOSE* 17GM PACKET PO PRN (13:12)
[2023-01-31] MEDS: RIVAROXABAN 15MG TAB (XARELTO) PO SCH (18:23)
[2023-01-31] MEDS: traZODone 50 MG TAB PO SCH (20:29)
[2023-01-31] MEDS: ATORVASTATIN 20 MG TAB PO SCH (20:30)
[2023-02-01 06:00] VITALS: BP 119/60; TEMP 98.2; O2SAT 94
[2023-02-01] MEDS: FLUoxetine 10 MG CAP PO SCH (08:51)
[2023-02-01] MEDS: GABAPENTIN 100 MG CAP PO SCH (08:52)
[2023-02-01] MEDS: FUROSEMIDE 40 MG TAB PO SCH (08:52)
[2023-02-01] MEDS: ACETAMINOPHEN TAB 650MG DOSE (2X325MG) PO PRN (15:22)
[2023-02-01] MEDS: RIVAROXABAN 15MG TAB (XARELTO) PO SCH (17:24)
[2023-02-01] MEDS ORDERED: CALCIUM CARBONATE 500 MG CHEW U/D PO ONE (20:00)
[2023-02-01] MEDS: traZODone 50 MG TAB PO SCH (20:46)
[2023-02-01] MEDS: ATORVASTATIN 20 MG TAB PO SCH (20:46)
[2023-02-02 06:00] VITALS: BP 120/56; TEMP 97.8; O2SAT 95
[2023-02-02] MEDS: FUROSEMIDE 40 MG TAB PO SCH (08:22)
[2023-02-02] MEDS: FLUoxetine 10 MG CAP PO SCH (08:22)
[2023-02-02] MEDS: GABAPENTIN 100 MG CAP PO SCH (08:22)
[2023-02-02] MEDS: RIVAROXABAN 15MG TAB (XARELTO) PO SCH (17:02)
[2023-02-02] MEDS: ATORVASTATIN 20 MG TAB PO SCH (20:12)
[2023-02-02] MEDS: traZODone 50 MG TAB PO SCH (20:12)
[2023-02-02] MEDS ORDERED: CALCIUM CARBONATE 500 MG CHEW U/D PO PRN (20:20)
[2023-02-03 06:00] VITALS: BP 128/60; TEMP 98.8; O2SAT 93
[2023-02-03] MEDS: GABAPENTIN 100 MG CAP PO SCH (08:36)
[2023-02-03] MEDS: FUROSEMIDE 40 MG TAB PO SCH (08:36)
[2023-02-03] MEDS: MIRALAX *UNIT DOSE* 17GM PACKET PO PRN (08:36)
[2023-02-03] MEDS: FLUoxetine 10 MG CAP PO SCH (08:36)
[2023-02-03] MEDS: ACETAMINOPHEN TAB 650MG DOSE (2X325MG) PO PRN (10:59)
== END 2023-02-03 13:58 | disposition home or self-care (01) ==
LOC: EDBD 08:09 → M ED 08:09 → M ED INP 08:10 → M MS4PR 14:22
PROVIDERS: ADMIT Internal Medicine; ATTEND Internal Medicine
DX: S09.90XA Unspecified injury of head, initial encounter (principal); W01.198A Fall on same level from slipping, tripping and stumbling with subsequent striking against other object, initial encounter; Y92.098 Other place in other non-institutional residence as the place of occurrence of the external cause; Y93.01 Activity, walking, marching and hiking; I69.351 Hemiplegia and hemiparesis following cerebral infarction affecting right dominant side; I69.398 Other sequelae of cerebral infarction; R26.81 Unsteadiness on feet; I48.0 Paroxysmal atrial fibrillation; I10 Essential (primary) hypertension; E78.5 Hyperlipidemia, unspecified; M47.812 Spondylosis without myelopathy or radiculopathy, cervical region; F32.A Depression, unspecified; R60.0 Localized edema; R73.03 Prediabetes; Z99.89 Dependence on other enabling machines and devices; Z79.899 Other long term (current) drug therapy; Z79.01 Long term (current) use of anticoagulants; Z74.1 Need for assistance with personal care; Z66 Do not resuscitate
CPT/HCPCS: 36415; 70450; 71045; 72125; 72170; 73502; 73552; 80048; 80076; 83036; 85025; 85027; 85610; 85730; 87635; 97116; 97161; 97165; 97530; 97535; 99285; G0378

== ENCOUNTER 2023-03-05 17:26 | Emergency (ER) | payer MEDICARE, MEDICAID ==
[~2023-03-05] VITALS: Ht 157.5 cm; Wt 78.6 kg
[2023-03-05 17:27] VITALS: BP 150/71; TEMP 98.7; O2SAT 94
== END 2023-03-05 20:20 | disposition home or self-care (01) ==
LOC: M ED 17:26
DX: S00.03XA Contusion of scalp, initial encounter (principal); W01.198A Fall on same level from slipping, tripping and stumbling with subsequent striking against other object, initial encounter; Y92.009 Unspecified place in unspecified non-institutional (private) residence as the place of occurrence of the external cause; Y93.89 Activity, other specified; Y99.8 Other external cause status; I10 Essential (primary) hypertension; E78.5 Hyperlipidemia, unspecified; E11.9 Type 2 diabetes mellitus without complications; K21.9 Gastro-esophageal reflux disease without esophagitis; Z86.73 Personal history of transient ischemic attack (TIA), and cerebral infarction without residual deficits; Z79.51 Long term (current) use of inhaled steroids; Z79.899 Other long term (current) drug therapy

== ENCOUNTER → 2023-06-03 | Outpatient (REF) | payer MEDICARE, MEDICAID ==
[~2023-06-03] MED LIST changes: +MECL-209 PO; -MECL1TAB31 PO
[2023-06-03 18:49] LABS: ALBUMIN 3.8 G/DL (3.2-5.2); ALKALINE PHOSPHATASE 77 U/L (46-116); ALT/SGPT 12 U/L (7.0-40); AST/SGOT 12 U/L (<34); BILIRUBIN,TOTAL 0.8 MG/DL (0.3-1.2); BLOOD UREA NITROGEN 16 MG/DL (9-23); CALCIUM LEVEL 9.4 MG/DL (8.3-10.6); CARBON DIOXIDE LEVEL 32 MMOL/L (20-31); CHLORIDE LEVEL 102 MMOL/L (98-107); CHOLESTEROL LEVEL 185 MG/DL (<200); CHOLESTEROL RISK RATIO 2.67 (<5); CREATININE FOR GFR 0.75 MG/DL (0.55-1.30); GLOMERULAR FILTRATION RATE > 60.0 (>32); GLUCOSE, FASTING 89 MG/DL (74-106); HDL CHOLESTEROL 69.2 MG/DL (>40); LDL CHOLESTEROL 91.6 MG/DL (<100); NON-HDL-C 115.8 MG/DL; POTASSIUM SERUM 4.2 MMOL/L (3.5-5.1); SODIUM LEVEL 141 MMOL/L (136-145); THYROID STIMULATING HORMONE 2.206 uIU/ML (0.55-4.78); TOTAL PROTEIN 7.2 G/DL (5.7-8.2); TRIGLYCERIDES LEVEL 121 MG/DL (<150)
[2023-06-03 18:50] LABS: BASO % 0.4 % (0.0-1.0); EOS # 0.1 10^3/uL (0.0-0.5); EOS % 1.2 % (0.0-3.0); HEMATOCRIT 43.1 % (36.0-47.0); HEMOGLOBIN 13.9 g/dl (12.0-15.5); LYMPH # 1.9 10^3/uL (1.5-5.0); LYMPH % 25.2 % (24.0-44.0); MEAN CORPUSCULAR HEMOGLOBIN 30.9 pg (27.0-33.0); MEAN CORPUSCULAR HGB CONC 32.3 g/dl (32.0-36.5); MEAN CORPUSCULAR VOLUME 95.8 fl (80.0-96.0); MONO # 0.8 10^3/uL (0.0-0.8); MONO % 10.2 % (2.0-8.0); NEUTROPHILS # 4.8 10^3/uL (1.5-8.5); NEUTROPHILS % 62.6 % (36.0-66.0); PLATELET COUNT, AUTOMATED 221 10^3/uL (150-450); WHITE BLOOD COUNT 7.6 10^3/uL (4.0-10.0)
== END ==
LOC: M LAB REF 16:34
PROVIDERS: ATTEND Family Medicine Addiction Medicine
DX: E11.9 Type 2 diabetes mellitus without complications (principal)

== ENCOUNTER 2023-08-02 13:58 | Emergency (ER) | payer MEDICARE, MEDICAID ==
[~2023-08-02] VITALS: Ht 157.5 cm; Wt 66.8 kg
[2023-08-02 14:46] LABS: VENOUS BASE EXCESS 1.2 (-2.0-2.0); VENOUS HCO3 27.7 MMOL/L (23.0-27.0); VENOUS O2 SATURATION 82.2 % (60.0-80.0); VENOUS PARTIAL PRESSURE CO2 51.1 mmHg (38.0-50.0); VENOUS PARTIAL PRESSURE O2 46.5 mmHg (30.0-50.0); VENOUS PH 7.352 UNITS (7.330-7.430); VENOUS STANDARD HCO3 25.2 MMOL/L; VENOUS TOTAL CO2 29.3 MMOL/L (24.0-28.0)
[2023-08-02 14:51] LABS: BASO % 0.3 % (0.0-1.0); EOS # 0.1 10^3/uL (0.0-0.5); EOS % 1.6 % (0.0-3.0); HEMATOCRIT 40.7 % (36.0-47.0); HEMOGLOBIN 13.6 g/dl (12.0-15.5); LYMPH # 1.6 10^3/uL (1.5-5.0); LYMPH % 25.6 % (24.0-44.0); MEAN CORPUSCULAR HEMOGLOBIN 31.5 pg (27.0-33.0); MEAN CORPUSCULAR HGB CONC 33.4 g/dl (32.0-36.5); MEAN CORPUSCULAR VOLUME 94.2 fl (80.0-96.0); MONO # 0.7 10^3/uL (0.0-0.8); MONO % 10.7 % (2.0-8.0); NEUTROPHILS # 3.9 10^3/uL (1.5-8.5); NEUTROPHILS % 61.6 % (36.0-66.0); PLATELET COUNT, AUTOMATED 216 10^3/uL (150-450); RED BLOOD COUNT 4.32 10^6/uL (4.00-5.40); WHITE BLOOD COUNT 6.3 10^3/uL (4.0-10.0)
[2023-08-02] MEDS ORDERED: NS 500 ML IV ONE (15:10)
[2023-08-02 15:23] LABS: ALBUMIN 3.6 G/DL (3.2-5.2); ALKALINE PHOSPHATASE 75 U/L (46-116); ALT/SGPT 18 U/L (7.0-40); AST/SGOT 22 U/L (<34); BILIRUBIN,DIRECT 0.3 MG/DL (<0.4); BILIRUBIN,TOTAL 0.8 MG/DL (0.3-1.2); BLOOD UREA NITROGEN 13 MG/DL (9-23); CALCIUM LEVEL 9.1 MG/DL (8.3-10.6); CARBON DIOXIDE LEVEL 30 MMOL/L (20-31); CHLORIDE LEVEL 106 MMOL/L (98-107); CREATININE FOR GFR 0.75 MG/DL (0.55-1.30); GLOMERULAR FILTRATION RATE > 60.0 (>32); GLUCOSE, FASTING 104 MG/DL (74-106); POTASSIUM SERUM 4.2 MMOL/L (3.5-5.1); SODIUM LEVEL 143 MMOL/L (136-145); TOTAL PROTEIN 6.8 G/DL (5.7-8.2)
[2023-08-02 15:25] LABS: THYROID STIMULATING HORMONE 2.028 uIU/ML (0.55-4.78)
[2023-08-02 17:42] VITALS: BP 164/74; TEMP 98.1; O2SAT 97
== END 2023-08-02 17:42 | disposition home or self-care (01) ==
LOC: M ED 13:58 → EDBD 13:58 → M ED 17:42
DX: I95.1 Orthostatic hypotension (principal); I48.91 Unspecified atrial fibrillation; I10 Essential (primary) hypertension; Z86.73 Personal history of transient ischemic attack (TIA), and cerebral infarction without residual deficits; E78.00 Pure hypercholesterolemia, unspecified; F39 Unspecified mood [affective] disorder; Z79.899 Other long term (current) drug therapy

== ENCOUNTER 2023-09-18 11:45 | Emergency (ER) | payer MEDICARE, MEDICAID ==
[~2023-09-18] VITALS: Ht 157.5 cm; Wt 67.2 kg
[2023-09-18 11:47] VITALS: BP 169/72; TEMP 98.2; O2SAT 92
== END 2023-09-18 15:11 | disposition home or self-care (01) ==
LOC: M ED 11:45
DX: M25.552 Pain in left hip (principal); I10 Essential (primary) hypertension; Z79.1 Long term (current) use of non-steroidal anti-inflammatories (NSAID); Z79.51 Long term (current) use of inhaled steroids; Z79.899 Other long term (current) drug therapy

== ENCOUNTER 2023-10-04 14:05 | Emergency (ER) | payer MEDICARE, MEDICAID ==
[~2023-10-04] VITALS: Ht 157.5 cm; Wt 69.5 kg
[2023-10-04] MEDS: ACETAMINOPHEN 325 MG TAB PO ONE (16:16)
[2023-10-04 17:28] VITALS: BP 151/71; TEMP 96.7; O2SAT 98
== END 2023-10-04 17:32 | disposition home or self-care (01) ==
LOC: EDBD 14:05 → M ED 14:05
DX: M25.462 Effusion, left knee (principal); M17.12 Unilateral primary osteoarthritis, left knee; M71.22 Synovial cyst of popliteal space [Baker], left knee; E11.9 Type 2 diabetes mellitus without complications; I10 Essential (primary) hypertension; E78.5 Hyperlipidemia, unspecified; Z79.1 Long term (current) use of non-steroidal anti-inflammatories (NSAID); Z79.51 Long term (current) use of inhaled steroids; Z79.899 Other long term (current) drug therapy

== ENCOUNTER → 2024-03-10 | Outpatient (CLI) | payer MEDICARE, MEDICAID ==
[~2024-03-10] MED LIST changes: +ESOM1CAP20; -ESOM1CAP5; +FLUO-290 PO; -FLUO10CA18 PO; +ONDA-282 PO; -ONDA4TAB6 PO
[2024-03-10 14:21] LABS: BLOOD UREA NITROGEN 17 MG/DL (9-23); CREATININE FOR GFR 0.82 MG/DL (0.55-1.30); GLOMERULAR FILTRATION RATE > 60.0 (>32)
== END ==
LOC: M LAB 11:28
PROVIDERS: ATTEND Psychiatry & Neurology Neurology
DX: I10 Essential (primary) hypertension (principal)

== ENCOUNTER 2024-03-31 20:04 | Emergency (ER) | payer MEDICARE, MEDICAID ==
[~2024-03-31] VITALS: Ht 157.5 cm; Wt 66.8 kg
[2024-03-31 20:09] VITALS: BP 127/58; TEMP 98.2; O2SAT 95
[2024-03-31] MEDS ORDERED: ISOVUE-370 76% 100ML VIAL As Ordered ONE (20:57)
== END 2024-03-31 22:07 | disposition left against medical advice (07) ==
LOC: M ED 20:04
DX: Z53.21 Procedure and treatment not carried out due to patient leaving prior to being seen by health care provider (principal)

== ENCOUNTER 2024-04-02 16:17 | Observation (INO) | payer MEDICARE, MEDICAID ==
[~2024-04-02] VITALS: Ht 157.5 cm; Wt 62.5 kg
[~2024-04-02 16:17] MED LIST changes: -ROSU20TA61; +ROSU20TA86
[2024-04-02 20:12] LABS: HEMATOCRIT 40.5 % (36.0-47.0); HEMOGLOBIN 13.4 g/dl (12.0-15.5); MEAN CORPUSCULAR HEMOGLOBIN 30.9 pg (27.0-33.0); MEAN CORPUSCULAR HGB CONC 33.1 g/dl (32.0-36.5); MEAN CORPUSCULAR VOLUME 93.5 fl (80.0-96.0); PLATELET COUNT, AUTOMATED 206 10^3/uL (150-450); RED BLOOD COUNT 4.33 10^6/uL (4.00-5.40); WHITE BLOOD COUNT 6.1 10^3/uL (4.0-10.0)
[2024-04-02] MEDS ORDERED: DONE10TA90 PO (20:22)
[2024-04-02] MEDS ORDERED: OMEP-173 PO (20:22)
[2024-04-02] MEDS ORDERED: FLUO-365 PO (20:22)
[2024-04-02] MEDS ORDERED: FURO40TA2 PO (20:22)
[2024-04-02] MEDS ORDERED: HOME MED LIST COMPLETE! XX SCH (20:25)
[2024-04-02] MEDS: NS 1,000 ML IV SCH (20:33)
[2024-04-02 20:41] LABS: ALBUMIN 3.4 G/DL (3.2-5.2); ALKALINE PHOSPHATASE 91 U/L (46-116); ALT/SGPT 22 U/L (7.0-40); AST/SGOT 20 U/L (<34); BILIRUBIN,TOTAL 0.9 MG/DL (0.3-1.2); BLOOD UREA NITROGEN 14 MG/DL (9-23); CALCIUM LEVEL 9.2 MG/DL (8.3-10.6); CARBON DIOXIDE LEVEL 32 MMOL/L (20-31); CHLORIDE LEVEL 105 MMOL/L (98-107); CREATININE FOR GFR 0.73 MG/DL (0.55-1.30); GLOMERULAR FILTRATION RATE > 60.0 (>32); GLUCOSE, FASTING 98 MG/DL (74-106); POTASSIUM SERUM 4.1 MMOL/L (3.5-5.1); SODIUM LEVEL 141 MMOL/L (136-145); TOTAL PROTEIN 6.6 G/DL (5.7-8.2)
[2024-04-02] MEDS ORDERED: ACETAMINOPHEN TAB 650MG DOSE (2X325MG) PO PRN (21:05)
[2024-04-02] MEDS: FLUoxetine 20MG CAP PO SCH (21:39)
[2024-04-02] MEDS: traZODone 50 MG TAB PO SCH (21:39)
[2024-04-02] MEDS: OMEPRAZOLE 20MG CAP PO SCH (21:39)
[2024-04-02] MEDS: RIVAROXABAN 15MG TAB (XARELTO) PO SCH (21:39)
[2024-04-02] MEDS: ATORVASTATIN 20 MG TAB PO SCH (21:39)
[2024-04-02 22:52] LABS: THYROID STIMULATING HORMONE 1.767 uIU/ML (0.55-4.78)
[2024-04-02 22:53] LABS: VITAMIN B12 LEVEL 428 PG/ML (211-911)
[2024-04-03] MEDS: DONEPEZIL 5 MG TAB PO SCH (09:18)
[2024-04-04 14:35] VITALS: BP 140/62; TEMP 98.2; O2SAT 96
[2024-04-04 20:00] VITALS: BP 125/59; TEMP 97.7; O2SAT 94
[2024-04-05] VITALS: BP 124/56; TEMP 97.7; O2SAT 95
== END 2024-04-05 12:05 ==
LOC: EDBD 16:17 → M ED 16:17 → INTOOBSV 04-04 12:12 → UNDOADMOB 04-04 12:12 → M ED INP 04-04 12:12 → M MSPAV 04-04 14:34 → M ED INP 04-05 10:57
PROVIDERS: ADMIT Family Medicine; ATTEND Internal Medicine
DX: F03.90 Unspecified dementia, unspecified severity, without behavioral disturbance, psychotic disturbance, mood disturbance, and anxiety (principal); R53.1 Weakness; Z74.2 Need for assistance at home and no other household member able to render care; E78.5 Hyperlipidemia, unspecified; I48.91 Unspecified atrial fibrillation; I10 Essential (primary) hypertension; F39 Unspecified mood [affective] disorder; I69.341 Monoplegia of lower limb following cerebral infarction affecting right dominant side; Z83.3 Family history of diabetes mellitus; Z79.899 Other long term (current) drug therapy; Z79.01 Long term (current) use of anticoagulants
CPT/HCPCS: 70450; 80053; 82140; 82607; 84443; 85027; 87426; 93005; 96360; 96361; 99285; G0378

== ENCOUNTER → 2024-04-12 | Outpatient (REF) ==
[~2024-04-12] MED LIST changes: +DONE10TA90 PO; +FLUO-365 PO; +OMEP-173 PO
[2024-04-12 15:05] LABS: HEMATOCRIT 40.3 % (36.0-47.0); HEMOGLOBIN 12.9 g/dl (12.0-15.5); MEAN CORPUSCULAR HEMOGLOBIN 30.1 pg (27.0-33.0); MEAN CORPUSCULAR VOLUME 93.9 fl (80.0-96.0); PLATELET COUNT, AUTOMATED 214 10^3/uL (150-450); RED BLOOD COUNT 4.29 10^6/uL (4.00-5.40); WHITE BLOOD COUNT 6.4 10^3/uL (4.0-10.0)
[2024-04-12 15:24] LABS: BLOOD UREA NITROGEN 19 MG/DL (9-23); CALCIUM LEVEL 9.1 MG/DL (8.3-10.6); CARBON DIOXIDE LEVEL 32 MMOL/L (20-31); CHLORIDE LEVEL 106 MMOL/L (98-107); CREATININE FOR GFR 0.75 MG/DL (0.55-1.30); GLOMERULAR FILTRATION RATE > 60.0 (>32); GLUCOSE, FASTING 121 MG/DL (74-106); POTASSIUM SERUM 3.7 MMOL/L (3.5-5.1); SODIUM LEVEL 142 MMOL/L (136-145)
== END ==
LOC: SKLAB5 08:17
PROVIDERS: ATTEND Internal Medicine
DX: I10 Essential (primary) hypertension (principal)

== ENCOUNTER → 2024-05-26 | Outpatient (REF) ==
[2024-05-26 08:45] LABS: HEMATOCRIT 38.1 % (36.0-47.0); HEMOGLOBIN 12.4 g/dl (12.0-15.5); MEAN CORPUSCULAR HEMOGLOBIN 30.8 pg (27.0-33.0); MEAN CORPUSCULAR HGB CONC 32.5 g/dl (32.0-36.5); MEAN CORPUSCULAR VOLUME 94.8 fl (80.0-96.0); PLATELET COUNT, AUTOMATED 208 10^3/uL (150-450); RED BLOOD COUNT 4.02 10^6/uL (4.00-5.40); WHITE BLOOD COUNT 6.5 10^3/uL (4.0-10.0)
[2024-05-26 09:09] LABS: ALBUMIN 3.4 G/DL (3.2-5.2); ALKALINE PHOSPHATASE 87 U/L (35-104); ALT/SGPT 27 U/L (7.0-40); AST/SGOT 17 U/L (<34); BILIRUBIN,TOTAL 0.5 MG/DL (0.3-1.2); BLOOD UREA NITROGEN 19 MG/DL (9-23); CALCIUM LEVEL 9.2 MG/DL (8.3-10.6); CARBON DIOXIDE LEVEL 31 MMOL/L (20-31); CHLORIDE LEVEL 108 MMOL/L (98-107); CHOLESTEROL LEVEL 152 MG/DL (<200); CHOLESTEROL RISK RATIO 2.82 (<5); GLOMERULAR FILTRATION RATE > 60.0 (>32); GLUCOSE, FASTING 117 MG/DL (74-106); HDL CHOLESTEROL 53.9 MG/DL (>40); LDL CHOLESTEROL 80.7 MG/DL (<100); NON-HDL-C 98.1 MG/DL; POTASSIUM SERUM 4.5 MMOL/L (3.5-5.1); SODIUM LEVEL 145 MMOL/L (136-145); TOTAL PROTEIN 6.7 G/DL (5.7-8.2); TRIGLYCERIDES LEVEL 87 MG/DL (<150)
== END ==
LOC: SKLAB5 07:00
PROVIDERS: ATTEND Internal Medicine
DX: E78.5 Hyperlipidemia, unspecified (principal); I10 Essential (primary) hypertension

== ENCOUNTER → 2024-09-06 | Outpatient (REF) | payer MEDICARE, MEDICAID | LOC: SKLAB5 08:03 | PROVIDERS: ATTEND Internal Medicine | DX: R05.9 Cough, unspecified (principal) ==

== ENCOUNTER → 2025-03-17 | Outpatient (REF) | payer MEDICARE, MEDICAID ==
[~2025-03-17] MED LIST changes: -GLUC1KIT IM; +GLUC1VIA14 IM
[2025-03-17 11:59] LABS: PLATELET COUNT, AUTOMATED 186 10^3/uL (150-450)
[2025-03-17 12:28] LABS: ESTIMATED AVERAGE GLUCOSE 143.0 MG/DL (60-110)
[2025-03-17 12:31] LABS: CALCIUM LEVEL 8.8 MG/DL (8.3-10.6); CARBON DIOXIDE LEVEL 30.0 MMOL/L (20-31); CHLORIDE LEVEL 106.0 MMOL/L (98-107); CHOLESTEROL LEVEL 145.0 MG/DL (<200); CHOLESTEROL RISK RATIO 2.57 (<5); CREATININE FOR GFR 0.78 MG/DL (0.55-1.30); GLOMERULAR FILTRATION RATE 75.3 (>32); LDL CHOLESTEROL 72.4 MG/DL (<100); NON-HDL-C 88.6 MG/DL; POTASSIUM SERUM 4.2 MMOL/L (3.5-5.1); SODIUM LEVEL 146.0 MMOL/L (136-145); TRIGLYCERIDES LEVEL 81.0 MG/DL (<150)
== END ==
LOC: SKLAB5 07:00
PROVIDERS: ATTEND Internal Medicine
DX: N18.9 Chronic kidney disease, unspecified (principal); D63.1 Anemia in chronic kidney disease; Z79.899 Other long term (current) drug therapy